=== PATIENT | male | born 1985 | race Caucasian/White ===

== ENCOUNTER → 2020-08-18 10:34 | Outpatient (CLI) | payer OTHER, SELFPAY ==
[2020-08-18 11:50] LABS: NATERA MAILED SPECIMEN
== END ==
PROVIDERS: Referring Provider Obstetrics & Gynecology; Visit Provider Obstetrics & Gynecology
DX: Z31.440 Encounter of male for testing for genetic disease carrier status for procreative management (principal)
CPT/HCPCS: 36415

== ENCOUNTER → 2025-03-25 | Outpatient (CLI) | payer OTHER, SELFPAY ==
--- OUTSIDE RECORDS SUMMARY | 2025-03-25 19:49 | XMS RPT_ITS | CCD ---
Author Organization [facility] Care Team Providers Care Machine Sizer Name Role Phone [facility] Other Unavailable [phone] [facility] Other Unavailable [phone] Self, Self Primary Care Provider Unavailabl e SELF, SELF Primary Care Unavailable SELF, AMISHA Attending Unavailable RAJAB, AMER Referring Unavailable SELF, SELF Referring Unavailable SELF, SELF Primary Care Unavailable RAJAB, AMER Attending Unavailable RAJAB, AMER Attending Unavailable RAJAB, AMER Admitting Unavailable SELF, SELF Referring Unavailable SELF, SELF Primary Care Unavailable RAJAB, AMER Attending Unavailable DARA CARRERO Admitting Unavailable PASTORADARA CHURCHILL Primary Care Unavailable DARA CARRERO Attending Unavailable PESAVENTO, KENDRICK E Admitting Unavailable PESAVENTO, KENDRICK E Primary Care Unavailable PESAVENTO, KENDRICK E Attending Unavailable ANDREA EDMONDSON MD Primary Care Unava ilable BUCKANNE, ANDREA OMER Attending Unava ilable ANDREA EDMONDSON MD Admitting Unava ilable DIDLEDY HEDRICK DO Admitting Unavailable DIDLEDY HEDRICK DO Primary Care Unavailable LEDY MUNIZ DO Attending Unavailable Care Physician, No Primary Primary Care Physicia n Unavailable Care Physician, No Primary Referring Provider Un available Ayaz Andrea Attending Physician Care Physician, No Primary Referring Unava ilable Ayaz Andrea Attending Unavailable Care Physician, No Primary Primary Care Unava ilable Chata Hammond Attending Unavailable Care Physician, No Primary Primary Care Unava ilable Care Physician, No Primary Referring Unava ilable Medications Current Medications Medication Drug Class(es) Dates Sig (Normalized) Sig (Original) acetaminophen 325 mg oral tablet (2 sources) Start: 04-01-2022 take 2 tablets by mouth every six hours as needed acetaminophen 325 MG tablet Take 2 tablets by mouth every 6 hours as needed for Mild Pain. 56 tablet 0 04/01/2022 Active Start: 04-01-2022 End: 04-01-2022 take 1 tablet by mouth every four hours as needed acetaminophen (TYLENOL) tablet 650 mg acetaminophen 325 mg / oxyCODONE hydrochloride 5 mg oral tablet (2 sources) Opioid Agonist Start: 04-01-2022 End: 04-08-2022 take 1 tablet by mouth every six hours as needed for pain oxyCODONE-acetaminophen 5-325 MG per tablet Indications: Kidney donor Take 1 tablet by mouth every 6 hours as needed for Moderate Pain (Moderate pain after CIGAR PACKER AND PICKER discontinued) for up to 7 days. 28 tablet 0 04/01/2022 04/08/2022 Active Start: 03-30-2022 End: 04-01-2022 take 1 tablet by mouth every four hours as needed oxyCODONE-acetaminophen (PERCOCET) 5-325 MG per tablet 1 tablet docusate sodium 100 mg oral capsule (2 sources) Start: 04-01-2022 End: 05-01-2022 take 2 capsules by mouth twice daily docusate 100 MG capsule Take 2 capsules by mouth 2 times daily. Hold for loose stools 120 capsule 0 04/01/2022 05/01/2022 Active Start: 03-30-2022 End: 04-01-2022 docusate (COLACE) capsule 20 0 mg ondansetron 4 mg disintegrating oral tablet (2 sources) Serotonin-3 Receptor Antagonist Start: 04-01-2022 take 1 tablet by mouth every eight hours as needed ondansetron 4 MG Tab Dispersible tablet Take 1 tablet by mouth every 8 hours as needed for Nausea / Vomiting. 90 tablet 0 04/01/2022 Active Start: 03-30-2022 End: 04-01-2022 take 4 mg intravenously every four hours as needed ondansetron 4mg/2ml (ZOFRAN) injection 4 mg polyethylene glycol [id number] [id number] mg powder for oral solution (2 sources) Osmotic Laxative Start: 03-30-2022 End: 04-01-2022 take 1 dose by mouth once daily as needed polyethylene glycol 17 g Pack packet Take 1 packet by mouth daily as needed. Hold for loose stools 14 packet 0 04/01/2022 Active sennosides, senior living 8.6 mg oral tablet (2 sources) Start: 03-30-2022 End: 05-01-2022 take 1 tablet by mouth once daily sennosides 8.6 MG tablet Take 1 tablet by mouth daily. Hold for loose stools 30 tablet 0 04/01/2022 05/01/2022 Active simethicone 80 mg chewable tablet (2 sources) Start: 03-30-2022 End: 04-01-2022 take 1 tablet by mouth every six hours as needed simethicone 80 MG Chew Tab chewable tablet Chew 1 tablet every 6 hours as needed for Gas. 120 tablet 0 04/01/2022 Active Completed/Discontinued Medications Medication Drug Class(es) Dates Sig (Normalized) Sig (Original) 1 ml heparin sodium, porcine 5000 unt/ml prefilled syringe (2 sources) Unfractionated Heparin, Anti-coagulant Start: 2 End: 2 heparin injection 5,000 Units iohexol (OMNIPAQUE) 350 MG/ML injection 1-171 mL (1 source) Start: 2 End: 2 iohexol (OMNIPAQUE) 350 MG/ML injection 1-171 mL 30 ml morphine sulfate 1 mg/ml injection (1 source) Opioid Agonist Start: 2 End: 2 morphine 30 mg/30 mL primary teaching assistant syringe naloxone (NARCAN) injection 0.1 mg (1 source) Start: 2 End: 2 naloxone (NARCAN) injection 0.1 mg prochlorperazine (COMPAZINE) injection 10 mg (1 source) Start: 2 End: 2 take 10 mg intravenously every four hours as needed prochlorperazine (COMPAZINE) injection 10 mg 1000 ml sodium chloride 9 mg/ml injection (3 sources) Start: 2 End: 2 sodium chloride 0.9% IV solution Start: 07-10-2021 End: 07-10-2021 sodium chloride (PF) 0.9 % i njection 1-100 mL Problems Active Problems Problem Classification Problem Date Documented Date Episodic/Chronic Administrative/social admission (2 sources) Administrative reason for encounter; Translations: [Encounter for other administrative examinations] 12-19-2023 Episodic Residual codes; unclassified (1 source) Hypersomnia, unspecified; Translations: [Hypersomnia, unspecified] Onset: 03-02-2025 Chronic Past or Other Problems Problem Classification Problem Date Documented Da te Episodic/Chronic Residual codes; unclassified (10 sources) Kidney donor; Translations: [Kidney donors] Onset: 03-30-2022 Episodic Results Test Name Value Interpretation Reference Range Facility Pulmonary Visit Reporton Pulmonary Visit Report [facility] Pulmonary Medicine [address] [place] [address] OFFICE VISIT Date of Service: 03/02/25 MR#: [id number] Acct: [id number] Name: LEDY DOVER Rep #: [id number] : 1985 Provider: Chata Hammond NP Age/Sex: 39/M [place] [facility] [place] Status: Signed Assessment and Plan Assessment and Plan (1) Sleep apnea: Status: Suspected Qualifiers: Sleep apnea type: obstructive Qualified Code(s): G47.33 - Obstructive sleep apnea (adult) (pediatric) Plan: The patient has had benefit from using PAP therapy in the past. Unfortunately his device is broken. It has been over 6 years since he has had his last sleep study. I have recommended repeating a study at this time and obtaining supine sleep for the study. I do believe the patient would benefit from using PAP therapy at this time. Await results of study and further recommendations will be forthcoming. The pathophysiology of sleep apnea was discussed at length with patient today. The patient is agreeable to proceed with an in-lab study. The process of completing this study, awaiting interpretation and results of the study and then set up with therapy was discussed with patient. The patient would likely be set up with an AutoPap device if his sleep study is positive. He would then follow-up in 3 months with a download from the device. (2) Daytime hypersomnia: Status: Acute Comment: STOP-BANG = 6 Plan: Despite an ESS of 0 the patient does report daytime hypersomnia. The patient reports that he does not allow himself to fall asleep. 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 He does consume 1 pot of coffee a day which does help him to stay awake. He does appear tired today. Await further testing. Orders: Orders Polysomnography Today G47.10 - Hypersomnia, unspecified Plan This note was generated with [employer] dictation software. It may contain incorrect words, spelling, and punctuation that were not noted in checking the note before signing. Plan Details Additional Comments: The patient is encouraged to utilize Zyrtec for his pruritic rash. Follow-up with PCP or urgent care if it does not improve. Follow Up: 3 Months (LMR) HPI HPI Comments Details: Patient is a 39-year-old male who presents today to establish for sleep apnea. He is ambulatory and currently on room air. [facility] He reports that his CPAP machine is broken and has not treated his sleep apnea for 2 years. He is snoring at night and feels tired throughout the day. He does not feel rested upon awakening. He awakens with a dry mouth. He denies teeth grinding. Nocturia occurs x 1-2. He had a history of positional sleep apnea. His insurance would not pay for PAP device so he used his father's machine for 5 years. He felt refreshed treating sleep disordered breathing at the time when he did have a device that was available. He did complete a PSG June 23, 2018 which showed an AHI of 3.5/h. He repeated a PSG on November 24, 2018 which showed an AHI of 3.2/h. In supine positioning his AHI was 5.5. Nonsupine positioning AHI was 0. At that time the patient had a tamika oxygen saturation of 89%. He has no history of pneumonia or bronchitis. He is a lifetime non-smoker. His father has sleep apnea. He drinks a pot of coffee a day. 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 He can't take a nap because his mind is running so fast. STOP-BANG Assessment: 1. Do you snore? [Y] 2. Are you frequently tired during the day? [Y] 3. Have you been observed gasping or choking while asleep? [Y] 4. Do you have high blood pressure? [Y] 5. BMI - greater than 35kg/m2? [N] 6. Age - over 50 years old? [N] 7. Neck Circumference - greater than 37 cm for females or 40 cm for males? [42 cm, Y] 8. Gender - male? [Y] Total STOP-BANG score = [6] which indicates [high] risk for obstructive sleep apnea (yes to 3 or more questions = high risk of sleep apnea). Intake Vital Signs 03/02/25 08:36 Height 5 ft 11 in Weight: 205 lb BMI 28.5 BP 129/85 H Blood Pressure Location Lt brachial Position Sitting Respiration 20 H Pulse 69 Pulse Source Monitor Temp 97.0 F L Temperature Source Temporal Artery Pulse Oximetry (%) 9 Oxygen Delivery Method room air Intake Visit Reasons: Sleep apnea Property Adjuster Required: No DME Vendor: n/a Accompanied by: Self Is patient in pain?: No Allergies No Known Allergies Allergy (Unverified 03/02/25 08:36) Medications ???Medication ???Instructions ???Recorded ???Confirmed ???Type valsartan 80 mg tablet 80 mg PO QDAY 03/02/25 03/02/25 Hi story [facility] Medical History (Updated 03/02/25 @ 09:16 by Chata Hammond NP-C) HTN (hypertension) Social Hi (more content not included)... Normal [facility] Office Visit Reporton 2024 Office Visit Report [facility] [address] [place] [address] OFFICE VISIT Date of Service: 01/13/25 MR#: [id number] Acct: [id number] Patient: LEDY DOVER Rep #: [id number] : 1985 Provider: JAYASHREE Roe Age/Sex: 39/M Location: [facility] Status: Signed Intake Intake Visit Reasons: DOT PHYSICAL/SELF PAY Chief Complaint: DOT physical [facility] Medical History (Updated 12/19/23 @ 06:28 by JAYASHREE Andrade) HTN (hypertension) HPI HPI Chief Complaint: DOT physical Details: LEDY DOVER, is a 39 M who presents to the office today for DOT physical Office Procedures Physical Exam Coding PE Coding DOT PE: Yes Coding Level of Care Code No Charge Diagnoses Encounter for examination required by Department of Transportation (DOT) Z02.89 Assessment and Plan Assessment and Plan (1) Encounter for examination required by Department of Transportation (DOT): Status: Acute Plan: see accompanying paperwork. 1 yr card issued. hx htn stable 01/13/25 1154 Date Ayaz Ting JAYASHREE Myrick Signature: Date (if applicable) CC: Normal [facility] ED MED ADMINISTRATION DETAIL on 09-22-2024 ED MED ADMINISTRATION DETAIL [employer] Medication Administration Record [address] [place] [address] [id number] 09/21/2024 Patient: LEDY DOVER Sex: Male : 1985 Age: 39y MEASUREMENTS: Wt: 92.1 kg, Ht/Burt: 71.0 in, BMI: 28.31 ALLERGIES: No known drug allergies Medication Ordered Medication Administration Date/Time CeFAZolin (Ancef) 20:09/21 CeFAZolin (Ancef) IVPB 1g/50ml PREMIX BAG 1 g Started IVPB 1g/50ml started at 100 mL/hr via Site# 1. Allergies verified and confirmed 5 20:11 09/21/2024 PREMIX BAG 1 g at rights. Via IV pump. IV patency established. IV site checked: no Sandra Talamantes R.N. 100 mL/hr (NOW x1) pain, redness, or swelling. IV flushed thoroughly pre-medication Stopped administration. Information reviewed with patient including reason 20:09/21/2024 for taking this medication, signs of allergic reaction and precautions. Samra Bhandari R.N. Verbalizes understanding. - 20:12 Sandra Talamantes R.N. Scanned 20:09/21 Medication Discontinued: IV completed. Total amount infused: 50 mL. IV patency established. IV site checked: no pain, redness, or swelling. IV flushed thoroughly post-medication administration. - 20:38 Samra Bhandari R.N. Acetaminophen 20:09/21 Acetaminophen (Tylenol) PO 650 mg given. Allergies Given (Tylenol) PO 650 verified and confirmed 5 rights. Information reviewed with patient 20:22 09/21/2024 mg (NOW x1) including reason for taking this medication, signs of allergic reaction Samra Bhandari R.N. and precautions. Verbalizes understanding. - 20:23 Edson Villa R.N. OxyCODONE-APAP Completed 5-325 (Percocet) PO 21:57 09/21/2024 1 tab Samra Bhandari R.N. 1 of 2 [employer] Medication Ordered Medication Administration Date/Time Order Comments: 21:53 09/21/2024 (1 tablet to go. Can take for pain when he gets home.) Ledy Muniz D.O. 21:57 09/21/2024 Order Completed. Medication sent home with patient. Samra Bhandari R.N. 2 of 2 [facility] ED NURSES CLINICAL NOTEon ED NURSES CLINICAL NOTE Nurse Narrative Nurse Clinical [address] [address] [id number] 09/21/2024 18:57:00 Patient: LEDY DOVER Sex: Male : 1985 Age: 39y Disposition: Discharge to Home Disposition Decision Time: 21:46 09/21/2024 Departure Time: 22:00 09/21/2024 TRIAGE Arrived by private vehicle. Historian: (patient). Primary physician (Lissett Yu [place]). Triage time: 19:04 09/21/2024. Chief Complaint: LEFT LOWER EXTREMITY PAIN, SWELLING and REDNESS. Location of symptoms- left great toe. Injury occurred. Onset. (Saturday night). ( Electrical conduit fell directly on pt's left toe. Now he has pain and swelling.). SEPSIS SCREEN: NEGATIVE. SIRS criteria negative. No possible sources of infection. -- 19:11 09/21/24 EDT Naila Shell R.N. Acuity: LEVEL 3. 19:07 09/21/24. -- 19:12 09/21/24 EDT Naila Shell R.N. 19:11 09/21/24. BP: 161/107 MAP: 125. HR: 80. RR: 16. O2 saturation: 99% Temperature: 97.5 F. Pain level now 710. -- 19:09/21/24 RANDEE Shell R.N. Measurements: 19:09/21/24 Wt: 92.1 kg, Ht/Burt: 71.0 in, BMI: 28.31 -- 19:09/21/24 JIMT Naila Shell R.N. Medications: 1 of 4 Nurse Narrative valsartan 80 mg tablet: 80 mg once a day . -- 19:09/21/24 JIMT Naila Shell R.N. 19:09/21/24. Preferred Pharmacy: [facility] -- 19:09/21/24 RANDEE Shell R.N. Allergies: no known drug allergies -- 19:09/21/24 JIMT Naila Shell R.N. Problems: Hypertension -- 19:09/21/24 JIMT Naila Shell R.N. Surgeries: kidney donation. left kidney -- :09/21/24 RANDEE Shell R.N. History 19:09/21/24. PAST MEDICAL HX: Immunizations not up to date. SOCIAL HX: Never smoker. No alcohol use or drug use. The patient has not traveled outside the [place] Infectious disease exposure: No infectious disease exposure. ABUSE ASSESSMENT: The patient answered yes to the question(s) Do you feel safe in your home? and no to the question(s) Are you afraid to go home?. SELF HARM ASSESSMENT: Self harm assessment was performed. The patient answered no to the question(s) Have you recently felt down, depressed, or hopeless? and Do you have thoughts of harming or killing yourself?. FALL RISK ASSESSMENT: Fall risk assessment completed. No risk factors identified. -- 19:09/21/24 RANDEE Shell R.N. Interventions 19:09/21/24. Advanced care plan discussed with patient. Patient does not have advanced directive. -- 19:09/21/24 RANDEE Shell R.N. 2 of 4 Nurse Narrative PHYSICAL ASSESSMENT 20:09/21/24. GENERAL / NEURO / PSYCH: Oriented X 4. Alert. Appears in no acute distress. EXTREMITIES: Extremity pulses are within normal limits. Neuro-vascular status intact to the extremity. Left foot: tenderness, swelling, erythema and ecchymosis of the first toe. SKIN: Skin intact. Skin is warm and dry. -- 20:16 09/21/24 EDT Samra Bhandari R.N. NURSING PROGRESS NOTES 19:58 09/21/24. Site #1 started via IV in the left antecubital space with a 20g angiocath with aseptic technique and good blood return; 1 attempt. Blood drawn: rainbow set tube(s). Saline lock flushed with 5 mL saline. -- 20:06 09/21/24 EDT Sandra Talamantes R.N. 20:11 09/21/24. CeFAZolin (Ancef) IVPB 1g/50ml PREMIX BAG 1 g started at 100 mL/hr via Site# 1. Allergies verified and confirmed 5 rights. Via IV pump. IV patency established. IV site checked: no pain, redness, or swelling. IV flushed thoroughly pre-medication administration. Information reviewed with patient including reason for taking this medication, signs of allergic reaction and precautions. Verbalizes understanding. -- 20:12 09/21/24 EDT Sandra Talamantes R.N. 20:22 09/21/24. Acetaminophen (Tylenol) PO 650 mg given. Allergies verified and confirmed 5 rights. Information reviewed with patient including reason for taking this medication, signs of allergic reaction and precautions. Verbalizes understanding. -- 20:23 09/21/24 EDT Samra Bhandari R.N. 20:30 09/21/24. 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 -- 20:55 09/21/24 EDT Samra Bhandari R.N. 20:38 09/21/24. CeFAZolin (Ancef) IVPB 1g/50ml PREMIX BAG: Medication Discontinued. IV completed. Total amount infused: 50 mL. IV patency established. IV site checked: no pain, redness, or swelling. IV flushed thoroughly post-medication administration. -- 20:38 09/21/24 EDT Samra Bhandari R.N. 21:03 09/21/24. ED physician at the patient's bedside. -- 21:04 09/21/24 EDT Samra Bhandari R.N. DISPOSITION / DISCHARGE 21:50 09/21/24. BP: 152/89 MAP: 110. HR: 76. RR: 16. O2 saturation: 100% on room air. Temperature: Deferred . Pain level now 6/10. Describes the pain as throbbing. (Left great toe). -- 22:07 09/21/24 EDT Samra Bhandari R.N. 21:55 09/21/24. Site #1 removed upon discharge. Cathet (more content not included)... Normal [facility] ED ORDER SHEET (CPOE ONLY)on 09-22-2024 ED ORDER SHEET (CPOE ONLY) Order Sheet Order Sheet [address] [place] [address] [id number] 09/21/2024 Patient: LEDY DOVER Sex: Male : 1985 Age: 39y MEASUREMENTS: Wt: 92.1 kg, Ht/Burt: 71.0 in, BMI: 28.31 ALLERGIES: No known drug allergies MEDICATION/IV/DRIP/F LUID ORDERS Order Description Priority Entered Acknowledged Completed CeFAZolin (Ancef) IVPB 19:49 09/21/2024 20:12 1g/50ml PREMIX BAG1 g at 100 Ledy Muniz D.O. 09/21/2024 mL/hr (NOW x1) Sandra Talamantes R.N. Acetaminophen (Tylenol) 20:19 09/21/2024 20:20 20:23 PO650 mg (NOW x1) Cheikh LamOKendrick 09/21/2024 09/21/2024 Samra Bhandari, Samra Bhandari R.N. RRadha OxyCODONE-APAP 5-325 21:53 09/21/2024 21:55 21:57 (Percocet) PO1 tab (NOW x1, Cheikh LamOKendrick 09/21/2024 09/21/2024 HIGH ALERT MEDICATION) Samra Villa R.N. Peng Order Comments: 21:53 09/21/2024: (1 tablet to go. Can take for pain when he gets home.) Ledy Muniz D.O. 21:57 09/21/2024: Order Completed. Medication sent home with patient. Samra Bhandari R.N. Reason for ordering with alerts: Clinical consideration given --21:53 09/21/2024 Ledy Muniz, 1 of 2 Order Sheet [place] LAB ORDERS Order Description Priority Entered Acknowledged Collected Completed CBC w Diff Stat Stat 19:49 09/21/2024 20:06 09/21/2024 20:12 09/21/2024 Albaro Lam Crystal Brenner, R.N. R.N. CMP Stat Stat 19:49 09/21/2024 20:06 09/21/2024 20:12 09/21/2024 Albaro Lam Crystal Brenner, R.N. R.N. DIAGNOSTIC STUDY ORDERS Order Description Priority Entered Acknowledged Completed Toe(s) Lt Stat Stat 19:30 09/21/2024 20:06 20:23 Ledy Muniz D.O. 09/21/2024 09/21/2024 Samra Morales, Peng R.NKendrick Reason for Study: Toes Injury STAFF ORDERS Order Description Priority Entered Acknowledged Collected Completed [Electronically signed by Ledy Muniz D.O. (09/22/2024 00:12 EDT)] 2 of 2 Normal [facility] ED PHYSICIAN CLINICAL REPORT on 09-22-2024 ED PHYSICIAN CLINICAL REPORT Narrative Physician Clinical Narrative [address] [address] [id number] 09/21/2024 18:57:00 Patient: LEDY DOVER Sex: Male : 1985 Age: 39y Disposition: Discharge to Home Disposition Decision Time: 21:46 09/21/2024 Departure Time: 22:00 09/21/2024 Measurements Wt: 92.1 kg, Ht/Burt: 71.0 in, BMI: 28.31 Initial Vital Sign Measured Time BP MAP HR RR O2Sat ETCO2 Temp Pain GCS RTS 19:11 09/21/2024 161/107 125 80 16 99% 97.5 F 7 Time Seen: 19:03 09/21/2024. Arrived- By private vehicle. Historian- patient. Independent historian- family. HISTORY OF PRESENT ILLNESS Chief Complaint: Injury to the left foot and great toe. The injury happened 6 days ago. (Dropped a conduit box on his left great toe last Magaly. He did poke a hole in the nail bed to help it drain blood but now the toe is red swollen and very painful.). REVIEW OF SYSTEMS MUSCULOSKELETAL: The patient complains of pain on weight bearing. The patient has had swelling. PAST HISTORY See nurses notes. 1 of 9 Narrative Hypertension Surgeries: kidney donation: Body Site left kidney Medications: valsartan 80 mg tablet: 80 mg once a day . Allergies: no known drug allergies SOCIAL HISTORY Never smoker. No alcohol use or drug use. ADDITIONAL NOTES The nursing notes have been reviewed. PHYSICAL EXAM Appearance: Alert. Oriented X3. Patient in mild distress. Head: Head atraumatic. Eyes: Pupils equal, round and reactive to light. ENT: Nose normal. (teeth intact). Neck: Normal inspection. Neck supple. C-spine non-tender. CVS: Normal heart rate and rhythm. Heart sounds normal. Pulses normal. Respiratory: No respiratory distress. Breath sounds normal. Chest nontender. Abdomen: No visible injury. Soft and nontender. Bowel sounds normal. Skin: Skin intact. Skin warm and dry. Extremities: Left great toe: moderate erythema, tenderness and swelling, small ecchymosis and multiple puncture wounds with controlled bleeding of the nail bed and tip of the toe; limited movement (diminished flexion); small subungual hematoma present. Neurovascular intact distally. No laceration, abrasion, foreign body or deformity. No avulsion. No amputation. No ankle injury. Extremities otherwise negative. Neuro, Vascular and Tendons: Vascular status intact. Sensation intact. Motor intact. Tendon function intact. Gait: Limping gait. Neuro: Oriented X 3. No motor deficit. No sensory deficit. 2 of 9 Narrative LABS, X-RAYS, AND EKG Laboratory Tests: CBC + DIFF Final JORGE: 09/21/2024 19:58:00 EDT MsgRcvd: 09/21/2024 20:22 EDT Lab Test Result Reference Status Received Comments 09/21/2024 20:22 CBC-COMPLETE CBC + DIFF Final EDT BLOOD COUNT 09/21/2024 20:22 WBC 10.1 x 10/UL 4.5 - 10.8 Final EDT 09/21/2024 20:22 RBC 4.82 x 10/UL 4.50 - 6.00 Final EDT 09/21/2024 20:22 HEMOGLOBIN 15.0 g/dl 13.0 - 17.5 Final EDT 09/21/2024 20:22 HEMATOCRIT 42.5 % 40.0 - 52.0 Final EDT 09/21/2024 20:22 MCV 88 fl 81 - 98 Final EDT 09/21/2024 20:22 MCH 31 pg 27 - 33 Final EDT 09/21/2024 20:22 MCHC 35 X10 3 32 - 36 Final EDT 09/21/2024 20:22 RDW/CV 13.2 % 12.0 - 15.6 Final EDT 09/21/2024 20:22 PLATELET 297 x10/UL 150 - 450 Final EDT 3 of 9 Narrative Lab Test Result Reference Status Received Comments 09/21/2024 20:22 AUTOMATED MPV 6.9 fl 6.4 - 10.5 Final EDT DIFFERENTIAL 09/21/2024 20:22 NEUT % 64.1 % 46.0 - 76.0 Final EDT 09/21/2024 20:22 LYMPH % 25.9 % 20.0 - 45.0 Final EDT 09/21/2024 20:22 MONOS % 7.7 % 0.0 - 10.0 Final EDT 09/21/2024 20:22 EO % 2.1 % 0.0 - 7.0 Final EDT 09/21/2024 20:22 BASO % 0.2 % 0.0 - 2.0 Final EDT 09/21/2024 20:22 Lymph # 2.62 x10/UL 0.80 - 2.80 Final EDT 09/21/2024 20:22 Neut # 6.48 x10/UL 1.50 - 7.10 Final EDT 09/21/2024 20:22 [place] # 0.78 x10/UL 0.20 - 1.00 Final EDT 09/21/2024 20:22 EO # 0.21 x10/UL 0.00 - 0.50 Final EDT 09/21/2024 20:22 Baso # 0.02 x10/UL 0.00 - 0.10 Final EDT 09/21/2024 20:22 MANUAL DIFF N/A New Order EDT 09/21/2024 20:22 MORPHOLOGY N/A New Order EDT 4 of 9 Narrative CMP with eGFR Final JORGE: 09/21/2024 19:58:00 EDT MsgRcvd: 09/21/2024 20:41 EDT Lab Test Result Reference Status Received Comments COMPREHENSIVE 09/21/2024 CMP with eGFR Final METABOLIC 20:41 EDT PANEL 09/21/2024 SODIUM 141 mmol/l 136 - 145 Final 20:41 EDT 09/21/2024 POTASSIUM 3.8 mmol/L 3.5 - 5.1 Final 20:41 EDT 09/21/2024 CHLORIDE 104 mmol/L 98 - 107 Final 20:41 EDT 09/21/2024 CO2 29.0 mmol/L 21.0 - 32.0 Final 20:41 EDT 09/21/2024 GLUCOSE 90 mg/dl 74 - 106 Final 20:41 EDT 21 mg/dl 09/21/2024 BUN Above high 7 - 18 Final 20:41 EDT normal 1.52 mg/ (more content not included)... Normal [facility] ED [facility] 09-22-[address] [place] [address] [id number] 09/21/2024 Patient: LEDY DOVER Sex: Male : 1985 Age: 39y Item Facility Professional Category Description Code Code Quantity Fee Total Nurse/E/M EMERGENCY 731863 1 $0.00 $0.00 DEPARTMENT VISIT HIGH/URGENT SEVERITY (30323-19) Nurse/IV/IM/Infusion s Drip/IVPB initial 370365 1 $0.00 $0.00 (10638) Grand Total $0.00 Providers Ledy Muniz D.O. Chief Complaint Injury to the left foot and great toe. Principal Diagnosis Cellulitis of the left great toe. 1 of 2 [facility] ICD-10 Codes L03.032: Cellulitis of left toe 2 of 2 Normal [facility] ED VISIT SUMMARYon ED VISIT SUMMARY Visit Overview Visit Overview [place] [address] [place] [address] [phone] 09/21/2024 Patient: LEDY DOVER Sex: Male : 1985 Age: 39y 09/22/2024 12:12 AM EDT ED Arrival:18:57 09/21/2024 EDT Status: Recent Travel:no Language:eng Adv Directive:No Isolation Status: Ethnicity:N Fall Risk:no risk Infectious Disease Exposure:no Measurements:5'11 / 180.3 Self-Harm Status:risk Sepsis Screen:negative cm 203.0 lb / 92.1 kg Chief Complaint:left great toe, LEFT LOWER EXTREMITY PAIN, LEFT LOWER EXTREMITY REDNESS, LEFT LOWER EXTREMITY SWELLING, (Electrical conduit fell directly on pt's left toe. Now he has pain and swelling. ), ([place] ), and (Saturday ) ALLERGIES No Known Drug Allergies 1 of 3 Visit Overview HOME MEDICATIONS valsartan 80 mg tablet: 80 mg once a day . PAST MEDICAL HISTORY / PROBLEMS Hypertension See nurses notes PAST SURGICAL HISTORY kidney donation. left kidney SOCIAL HISTORY Smoking status: No Alcohol use: No Drug use: No ED COURSE MEDICATIONS GIVEN IN EMERGENCY DEPARTMENT 20:11 09/21/24 CeFAZolin (Ancef) IVPB 1g/50ml PREMIX BAG 1 g 100 mL/hr 20:22 09/21/24 Acetaminophen (Tylenol) PO 650 mg IV SITE INFORMATION INTAKE OUTPUT REASSESMENT (most recent) 20:30 09/21/24. 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 VITAL SIGNS First Vitals Last Vitals Temp 19:09/21/24 97.5 F Temp 21:50 09/21/24 BP 19:09/21/24 161/107 BP 21:50 09/21/24 152/89 HR 19:09/21/24 80 HR 21:50 09/21/24 76 2 of 3 Visit Overview First Vitals Last Vitals RR 19:09/21/24 16 RR 21:50 09/21/24 16 O2 Sat 19:09/21/24 99% O2 Sat 21:50 09/21/24 100% RA Pain 19:11 09/21/24 7 Pain 21:50 09/21/24 6 ETCO2 19:11 09/21/24 ETCO2 21:50 09/21/24 GCS 19:11 09/21/24 GCS 21:50 09/21/24 RTS 19:11 09/21/24 RTS 21:50 09/21/24 PROCEDURES NURSING INTERVENTIONS LABS / STUDIES LABS / STUDIES ORDERED CBC w Diff CMP Toe(s) Lt CLINICAL IMPRESSION CELLULITIS OF THE LEFT GREAT TOE 3 of 3 Normal [facility] ED VITALS FLOW SHEETon 09-22 ED VITALS FLOW SHEET Vitals Vital Sign Flow Sheet [address] [address] [id number] 09/21/2024 Patient: LEDY DOVER Sex: Male : 1985 Age: 39y Measurements Wt: 92.1 kg, Ht/Burt: 71.0 in, BMI: 28.31 Measured Time BP MAP HR RR O2Sat ETCO2 Temp Pain GCS RTS 21:50 09/21/2024 152/89 110 76 16 100% RA 6 19:11 09/21/2024 161/107 125 80 16 99% 97.5 F 7 1 of 1 Normal [facility] CBC + DIFFon 09-21-2024 Baso # 0.02 x10EE3/UL Normal 0.00 - 0.10 [facility] Comment on above: Performed By: #### 2 02276 #### [facility],[address] [place] [address] 20031 Basophils/100 WBC (Bld) 0.2 % Normal 0.0 - 2.0 [facility] Comment on above: Performed By: #### 2 46126 #### [facility],[address] [place] [address] 42742 CBC + DIFF Normal [facility] Comment on above: Result Comment: CBC- COMPLETE BLOOD COUNT Performed By: #### 2 93040 #### [facility],[address] [place] [address] 39458 EO # 0.21 x10EE3/UL Normal 0.00 - 0.50 [facility] Comment on above: Performed By: #### 2 24357 #### [facility],[address] [place] [address] 66707 Eosinophils/100 WBC (Bld) 2.1 % Normal 0.0 - 7.0 [facility] Comment on above: Performed By: #### 2 10759 #### [facility],[address] [place], [place] [id number] Erythrocyte distribution width (RBC) [Ratio] 13.2 % Normal 12.0 - 15.6 [facility] Comment on above: Performed By: #### 2 76563 #### [facility],[address] [place] [address] Hematocrit (Bld) [Volume fraction] 42.5 % Normal 40.0 - 52.0 [facility] Comment on above: Performed By: #### 2 16778 #### [facility],[address] [place], [place] [id number] Hemoglobin (Bld) [Mass/Vol] 15.0 g/dL Normal 13.0 - 17.5 [facility] Comment on above: Performed By: #### 2 21415 #### [facility],[address] [place] [address] 96389 Lymph # 2.62 x10EE3/UL Normal 0.80 - 2.80 [facility] Comment on above: Performed By: #### 2 19953 #### [facility],[address] [place] [address] 73197 Lymphocytes/100 WBC (Bld) 25.9 % Normal 20.0 - 45.0 [facility] Comment on above: Performed By: #### 2 63721 #### [facility],[address] [place] [address] 03129 MANUAL DIFF N/A Normal [facility] Comment on above: Performed By: #### 2 93268 #### [facility],[address] [place] [address] MCH (RBC) [Entitic mass] 31 pg Normal 27 - 33 [facility] Comment on above: Performed By: #### 2 50832 #### [facility],[address] [place] [address] MCHC 35 X10 3 Normal 32 - 36 [facility] Comment on above: Performed By: #### 2 67738 #### [facility],[address] [place] [address] MCV (RBC) [Entitic vol] 88 fL Normal 81 - 98 [facility] Comment on above: Performed By: #### 2 12194 #### [facility],[address] [place] [address] [place] # 0.78 x10EE3/UL Normal 0.20 - 1.00 [facility] Comment on above: Performed By: #### 2 08203 #### [facility],[address] [place] [address] MONOS % 7.7 % Normal 0.0 - 10.0 [facility] Comment on above: Performed By: #### 2 13764 #### [facility],[address] [place] [address] Morphology Alexis (Bld) [Interp] N/A Normal [facility] Comment on above: Performed By: #### 2 40642 #### [facility],[address] [place] [address] Neut # 6.48 x10EE3/UL Normal 1.50 - 7.10 [facility] Comment on above: Performed By: #### 2 64484 #### [facility],[address] [place] [address] Neutrophils/100 WBC (Bld) 64.1 % Normal 46.0 - 76.0 [facility] Comment on above: Performed By: #### 2 70739 #### [facility],[address] [place] [address] 63260 PLATELET 297 x10EE3/UL Normal 150 - 450 [facility] Comment on above: Performed By: #### 2 65744 #### [facility],[address] [place] [address] 06052 Platelet mean volume (Bld) [Entitic vol] 6.9 fL Normal 6.4 - 10.5 [facility] Comment on above: Result Comment: AUTO MATED DIFFERENTIAL Performed By: #### 2 26749 #### [facility],[address] [place] [address] 00977 RBC 4.82 x 10EE6/UL Normal 4.50 - 6.00 [facility] Comment on above: Performed By: #### 2 30894 #### [facility],[address] [place] [address] 50179 WBC 10.1 x 10EE3/UL Normal 4.5 - 10.8 [facility] Comment on above: Performed By: #### 2 92563 #### [facility],[address] [place] [address] 70588 CMP with eGFRon 09-21-2024 AGE 39 years Normal [facility] Comment on above: Performed By: #### 2 28568 #### [facility],[address] [place] [address] 57144 Albumin [Mass/Vol] 4.0 g/dL Normal 3.4 - 5.0 [facility] Comment on above: Performed By: #### 2 49622 #### [facility],[address] [place] [address] 76783 Albumin/Globulin [Mass ratio] 1.3 {ratio} Normal 0.9 - 1.6 [facility] Comment on above: Performed By: #### 2 40016 #### [facility],[address] [place] [address] 40580 ALK PHOS 92 U/L Normal 46 - 116 [facility] Comment on above: Performed By: #### 2 84833 #### [facility],[address] [place] [address] 19793 ALT [Catalytic activity/Vol] 62 U/L Normal 16 - 63 [facility] Comment on above: Performed By: #### 2 45428 #### [facility],[address] [place] [address] 57208 Anion gap [Moles/Vol] 12 mmol/L Normal 10 - 20 [facility] Comment on above: Performed By: #### 2 22338 #### [facility],[address] [place] [address] 34471 AST [Catalytic activity/Vol] 29 U/L Normal 15 - 37 [facility] Comment on above: Performed By: #### 2 17799 #### [facility],[address] [place] [address] 08416 B/C RATIO 14 ratio Normal 0 - 30 [facility] Comment on above: Performed By: #### 2 33564 #### [facility],[address] [place] [address] 52255 Bilirubin [Mass/Vol] 0.4 mg/dL Normal 0.2 - 1.0 [facility] Comment on above: Performed By: #### 2 77108 #### [facility],[address] [place] [address] 56162 Calcium [Mass/Vol] 8.7 mg/dL Normal 8.5 - 10.1 [facility] Comment on above: Performed By: #### 2 87335 #### [facility],[address] [place] [address] 57564 Chloride [Moles/Vol] 104 mmol/L Normal 98 - 107 [facility] Comment on above: Performed By: #### 2 37849 #### [facility],[address] [place] [address] 57209 CMP with eGFR Normal [facility] Comment on above: Result Comment: COMP REHENSIVE METABOLIC PANEL Performed By: #### 2 59987 #### [facility],[address] [place] [address] 20715 CO2 [Moles/Vol] 29.0 mmol/L Normal 21.0 - 32.0 [facility] Comment on above: Performed By: #### 2 92949 #### [facility],[address] [place] [address] 17782 Creatinine [Mass/Vol] 1.52 mg/dL High 0.70 - 1.30 [facility] Comment on above: Performed By: #### 2 16171 #### [facility],[address] [place] [address] 41410 eGFR 52 ML/MINUTE Low 60 - 999 [facility] Comment on above: Performed By: #### 2 13217 #### [facility],[address] [place] [address] 88428 GFR/1.73 sq M.predicted among non-blacks MDRD (S/P/Bld) [Vol rate/Area] mL/min/{1.73_m2} Normal 60 - 999 [facility] Comment on above: Result Comment: ACCO RDING TO THE NATIONAL KIDNEY DISEASE EDUCATION PROGRAM(NKDE), A NORMAL eGFR IS A VALUE GREATER THAN OR EQUAL TO 60 ML/MIN/1.73 SQ METERS. CHRONIC KIDNEY DISEASE: <60mL/MIN/1.73 SQ METERS KIDNEY FAILURE: <15mL/MIN/1.73 SQ METERS THIS TEST SHOULD ONLY BE USED FOR PATIENTS 18 YEARS OF AGE AND OLDER. Performed By: #### 2 85667 #### [facility],[address] [place] [address] 33517 Globulin (S) [Mass/Vol] 3.2 g/dL Normal 1.5 - 3.8 [facility] Comment on above: Performed By: #### 2 90160 #### [facility],[address] [place] [address] 93077 Glucose [Mass/Vol] 90 mg/dL Normal 74 - 106 [facility] Comment on above: Performed By: #### 2 06202 #### [facility],[address] [place] [address] 19705 Potassium [Moles/Vol] 3.8 mmol/L Normal 3.5 - 5.1 [facility] Comment on above: Performed By: #### 2 50415 #### [facility],[address] [place] [address] 36710 Protein [Mass/Vol] 7.2 g/dL Normal 6.4 - 8.2 [facility] Comment on above: Performed By: #### 2 17731 #### [facility],[address] [place] [address] 94651 Sodium [Moles/Vol] 141 mmol/L Normal 136 - 145 [facility] Comment on above: Performed By: #### 2 36655 #### [facility],[address] [place] [address] 92834 Urea nitrogen [Mass/Vol] 21 mg/dL High 7 - 18 [facility] Comment on above: Performed By: #### 2 34550 #### [facility],[address] [place] [address] 76782 TOES LTon 09-21-[address] [address] Patient: LEDY DOVER Phone#: : 1985 Age: 39 Gender: M Pt. Type: ER Account: [id number] Location: 05 Ordering: LEDY MUNIZ Exam Date: 09/21/2024/19:38 Family Phys: Charge Code: [id number] Physician: Levy Order #: [id number] Dose#: PROCEDURE: X-RAY TOES LT MIN 2 VIEWS COMPARISON: None. INDICATIONS: Toe injury. FINDINGS: BONES: Normal. No significant arthropathy or acute abnormality. SOFT TISSUES: Negative. No visible soft tissue swelling. EFFUSION: None visible. OTHER: Negative. CONCLUSION: 1. No acute osseous abnormality. Dictated by: Mali Stack MD on 09/22/2024 at 9:20 Approved by: Mali Stack MD on 09/22/2024 at 9:23 Normal [facility] BMP with eGFRon 06-12-2024 AGE 39 years Normal [facility] Comment on above: Performed By: #### 2 46489 ####[facility],[address] [place], [place] [address] Anion gap [Moles/Vol] 10 mmol/L Normal 10 - 20 [facility] Comment on above: Performed By: #### 2 93327 ####[facility],[address] [place] [address] 24194 BMP with eGFR Normal [facility] Comment on above: Result Comment: BASI C METABOLIC PANEL Performed By: #### 2 10715 ####[facility],[address] [place], [place] [address] Calcium [Mass/Vol] 9.3 mg/dL Normal 8.5 - 10.1 [facility] Comment on above: Performed By: #### 2 15637 ####[facility],[address] [place], [place] [address] Chloride [Moles/Vol] 106 mmol/L Normal 98 - 107 [facility] Comment on above: Performed By: #### 2 91088 ####[facility],[address] [place] [address] 41931 CO2 [Moles/Vol] 29.9 mmol/L Normal 21.0 - 32.0 [facility] Comment on above: Performed By: #### 2 47741 ####[facility],[address] [place] [address] 98288 Creatinine [Mass/Vol] 1.28 mg/dL Normal 0.70 - 1.30 [facility] Comment on above: Performed By: #### 2 60125 ####[facility],[address] [place] [address] GFR/1.73 sq M.predicted among non-blacks MDRD (S/P/Bld) [Vol rate/Area] mL/min/{1.73_m2} Normal 60 - 999 [facility] Comment on above: Performed By: #### 2 73146 ####[facility],[address] [place] [address] Result Comment: ACCO RDING TO THE NATIONAL KIDNEY DISEASE EDUCATION PROGRAM(NKDE), A NORMAL eGFR IS A VALUE GREATER THAN OR EQUAL TO 60 ML/MIN/1.73 SQ METERS. CHRONIC KIDNEY DISEASE: <60mL/MIN/1.73 SQ METERS KIDNEY FAILURE: <15mL/MIN/1.73 SQ METERS THIS TEST SHOULD ONLY BE USED FOR PATIENTS 18 YEARS OF AGE AND OLDER. Glucose [Mass/Vol] 89 mg/dL Normal 74 - 106 [facility] Comment on above: Performed By: #### 2 61716 ####[place] [address] Potassium [Moles/Vol] 4.2 mmol/L Normal 3.5 - 5.1 [facility] Comment on above: Performed By: #### 2 55999 ####[place] [address] Sodium [Moles/Vol] 142 mmol/L Normal 136 - 145 [facility] Comment on above: Performed By: #### 2 62705 ####[place] [id number] Urea nitrogen [Mass/Vol] 19 mg/dL High 7 - 18 [facility] Comment on above: Performed By: #### 2 40052 ####[address] [address] URINE CREATININE AND PROTEIN RATIOon 06-12-2024 CREATININE UR 22.63 mg/dl Normal [facility] Comment on above: Performed By: #### 2 70084 #### [place] [id number] PC RATIO 0.12 mg/dL Normal 0.00 - 10.00 [facility] Comment on above: Performed By: #### 2 13035 #### [facility],[address] [place] [address] 11548 URINE TOTAL PROTEIN <6.00 Normal 0.00 - 10.00 [facility] Comment on above: Performed By: #### 2 55115 #### [facility],[address] [place] [address] 13820 CHEM 7 (LYTES,BUN,CREA,GLUC) on 04-30-2022 Anion gap [Moles/Vol] 12 mmol/L Normal 7-17 [facility] Comment on above: Performed By: #### L [id number] #### [facility] (DEFAULT) [address] [address] Chloride [Moles/Vol] 100 mmol/L Normal 98-108 [facility] Comment on above: Performed By: #### L [id number] #### [facility] (DEFAULT) [address] [place] [address] 83282 CO2 [Moles/Vol] 30 mmol/L Normal 21-31 [facility] Comment on above: Performed By: #### L [id number] #### [facility] (DEFAULT) [address] [place] [address] 10799 Creatinine [Mass/Vol] 1.47 mg/dL High 0.70-1.30 [facility] Comment on above: Performed By: #### L [id number] #### [facility] (DEFAULT) [address] [place] [address] 44852 GFR/1.73 sq M.predicted among non-blacks MDRD (S/P/Bld) [Vol rate/Area] 63 mL/min/{1.73_m2} Normal >=60 [facility] Comment on above: Result Comment: Repo rted eGFR is based on the CKD-EPI 2020 equation using creatinine, age, and sex. Performed By: #### L [id number] #### [facility] (DEFAULT) [address] [place] [address] 64692 Glucose [Mass/Vol] 78 mg/dL Normal 70-99 [facility] Comment on above: Performed By: #### L [id number] #### [facility] (DEFAULT) [address] [place] [address] 63408 Osmolality [Osmolality] 289 mosm/kg Normal 278-305 [facility] Comment on above: Performed By: #### L [id number] #### [facility] (DEFAULT) [address] [place] [address] 12949 Potassium [Moles/Vol] 3.9 mmol/L Normal 3.5-5.0 [facility] Comment on above: Performed By: #### L [id number] #### [facility] (DEFAULT) [address] [place] [address] 65671 Sodium [Moles/Vol] 138 mmol/L Normal 135-145 [facility] Comment on above: Performed By: #### L [id number] #### [facility] (DEFAULT) [address] [place] [address] 67784 Urea nitrogen [Mass/Vol] 16 mg/dL Normal 7-25 [facility] Comment on above: Performed By: #### L [id number] #### [facility] (DEFAULT) [address] [place] [address] 69621 Urea nitrogen/Creatinine [Mass ratio] 11 mg/mg Normal [facility] Comment on above: Performed By: #### L [id number] #### [facility] (DEFAULT) [address] [place] [address] 35943 BUN CREAon 2022 Creatinine [Mass/Vol] 1.42 mg/dL High 0.70-1.30 [facility] Comment on above: Performed By: #### L [id number] #### [facility] (DEFAULT) [address] [place] [address] 33834 GFR/1.73 sq M.predicted among non-blacks MDRD (S/P/Bld) [Vol rate/Area] 66 mL/min/{1.73_m2} Normal >=60 [facility] Comment on above: Result Comment: Repo rted eGFR is based on the CKD-EPI 2021 equation using creatinine, age, and sex. Performed By: #### L [id number] #### [facility] (DEFAULT) [address] [address] Urea nitrogen [Mass/Vol] 19 mg/dL Normal 7-25 [facility] Comment on above: Performed By: #### L [id number] #### [facility] (DEFAULT) [address] [address] Urea nitrogen/Creatinine [Mass ratio] 13 mg/mg Normal [facility] Comment on above: Performed By: #### L [id number] #### [facility] (DEFAULT) [address] [address] Creatinine [Mass/Vol] 1.42 mg/dL High 0.70 - 1.30 mg/dL [facility] GFR/1.73 sq M.predicted CKD-EPI (S/P/Bld) [Vol rate/Area] 66 - PINF [facility] Comment on above: Reported eGFR is bas ed on the CKD-EPI 2021 equation using creatinine, age, and sex. Interpretation and review of laboratory results Abnormal [facility] Urea nitrogen [Mass/Vol] 19 mg/dL 7 - 25 mg/dL [facility] Urea nitrogen/Creatinine [Mass ratio] 13 mg/mg [facility] HEMOGLOBIN & HEMATOCRITon Hematocrit (Bld) [Volume fraction] 38.0 % Low 39.6-48.8 [facility] Comment on above: Performed By: #### H H #### [facility] (DEFAULT) [address] [address] Hemoglobin (Bld) [Mass/Vol] 12.9 g/dL Low 13.4-16.8 [facility] Comment on above: Performed By: #### H H #### [facility] (DEFAULT) [address] [address] Hematocrit (Bld) [Volume fraction] 38.0 % Low 39.6 - 48.8 % [facility] Hemoglobin (Bld) [Mass/Vol] 12.9 g/dL Low 13.4 - 16.8 g/dL [facility] Interpretation and review of laboratory results Abnormal [facility] HILDA AURIS SCREEN BY PCRo n 03-30-2022 Hilda auris Screen by PCR Not detected Normal Not Detected [facility] Comment on above: Order Comment: This test was performed using a real-time PCR assay. This test was developed, and its performance characteristics determined by [facility]. It has not been cleared or approved by the FDA. The laboratory is regulated under CLIA as qualified to perform high-complexity testing. This test is used for clinical purposes. It should not be regarded as investigational or for research. Performed By: #### L [id number] #### [facility] (DEFAULT) [address] [address] CARDIAC RHYTHM (SCANNED)on 1 05-31-2021 [facility] No Panel Informationon 03-30 Sample Received Yes [facility] PRE-TX LIVING DONOR SERUM SA MPLEon 03-30-2022 Sample Received Yes Normal [facility] Comment on above: Performed By: #### P TXSER #### [facility] (DEFAULT) [address] [address] Order Comment: Ok to use EDTA tube. Performed By: #### L [id number] #### [facility] (DEFAULT) [address] [address] CBC,PLATELETSon 03-26-2022 Hematocrit (Bld) [Volume fraction] 43.9 % Normal 39.6-48.8 [facility] Comment on above: Performed By: #### L [id number] #### U [facility] (DEFAULT) [address] [address] Hemoglobin (Bld) [Mass/Vol] 15.1 g/dL Normal 13.4-16.8 [facility] Comment on above: Performed By: #### L [id number] #### [facility] (DEFAULT) [address] [address] MCV (RBC) [Entitic vol] 90.3 fL Normal 79.0-94.5 [facility] Comment on above: Performed By: #### L [id number] #### [facility] (DEFAULT) [address] [address] Mean Cell Hgb 31.1 pg Normal 26.1-33.3 [facility] Comment on above: Performed By: #### L [id number] #### [facility] (DEFAULT) [address] [address] Mean Cell Hgb Conc 34.4 g/dL Normal 31.9-36.5 [facility] Comment on above: Performed By: #### L [id number] #### [facility] (DEFAULT) [address] [address] Platelet mean volume (Bld) [Entitic vol] 10.0 fL Normal 8.7-12.3 [facility] Comment on above: Performed By: #### L [id number] #### [facility] (DEFAULT) [address] [address] Platelets (Bld) [#/Vol] 298 10*3/uL Normal 146-337 [facility] Comment on above: Performed By: #### L [id number] #### [facility] (DEFAULT) [address] [address] RBC (Bld) [#/Vol] 4.86 10*6/uL Normal 4.38-5.83 [facility] Comment on above: Performed By: #### L [id number] #### [facility] (DEFAULT) [address] [place] [address] RBC Distribution 12.2 % Normal 10.9-14.3 [facility] Comment on above: Performed By: #### L [id number] #### [facility] (DEFAULT) [address] [place] [address] WBC (Bld) [#/Vol] 5.79 10*3/uL Normal 3.73-10.10 [facility] Comment on above: Performed By: #### L [id number] #### [facility] (DEFAULT) [address] [place] [address] Erythrocyte distribution width (RBC) [Ratio] 12.2 % 10.9 - 14.3 % [facility] Hematocrit (Bld) [Volume fraction] 43.9 % 39.6 - 48.8 % [facility] Hemoglobin (Bld) [Mass/Vol] 15.1 g/dL 13.4 - 16.8 g/dL [facility] Interpretation and review of laboratory results Normal [facility] MCH (RBC) [Entitic mass] 31.1 pg 26.1 - 33.3 pg [facility] MCHC (RBC) [Mass/Vol] 34.4 g/dL 31.9 - 36.5 g/dL [facility] MCV (RBC) [Entitic vol] 90.3 fL 79.0 - 94.5 fL [facility] Platelet mean volume (Bld) [Entitic vol] 10.0 fL 8.7 - 12.3 fL [facility] Platelets (Bld) [#/Vol] 298 10*3/uL 146 - 337 K/uL [facility] RBC (Bld) [#/Vol] 4.86 10*6/uL [facility] WBC (Bld) [#/Vol] 5.79 10*3/uL 3.73 - 10. 10 K/uL [facility] CHEM 7 (LYTES,BUN,CREA,GLUC) on 03-26-2022 Anion gap [Moles/Vol] 12 mmol/L Normal 7-17 [facility] Comment on above: Performed By: #### L [id number] #### [facility] (DEFAULT) [address] [place] [address] Chloride [Moles/Vol] 104 mmol/L Normal 98-108 [facility] Comment on above: Performed By: #### L [id number] #### [facility] (DEFAULT) [address] [place] [address] CO2 [Moles/Vol] 27 mmol/L Normal 21-31 [facility] Comment on above: Performed By: #### L [id number] #### [facility] (DEFAULT) [address] [place] [address] Creatinine [Mass/Vol] 0.89 mg/dL Normal 0.70-1.30 [facility] Comment on above: Performed By: #### L [id number] #### [facility] (DEFAULT) [address] [place] [address] eGFR, CKD-EPI, Male > Normal >=60 [facility] Comment on above: Result Comment: Repo rted eGFR is based on the CKD-EPI 2020 equation using creatinine, age, and sex. Performed By: #### L [id number] #### [facility] (DEFAULT) [address] [place] [address] Glucose [Mass/Vol] 85 mg/dL Normal 70-99 [facility] Comment on above: Performed By: #### L [id number] #### [facility] (DEFAULT) [address] [place] [address] Osmolality [Osmolality] 290 mosm/kg Normal 278-305 [facility] Comment on above: Performed By: #### L [id number] #### [facility] (DEFAULT) [address] [place] [address] Potassium [Moles/Vol] 3.9 mmol/L Normal 3.5-5.0 [facility] Comment on above: Performed By: #### L [id number] #### [facility] (DEFAULT) [address] [place] [address] Sodium [Moles/Vol] 139 mmol/L Normal 135-145 [facility] Comment on above: Performed By: #### L [id number] #### [facility] (DEFAULT) [address] [place] [address] Urea nitrogen [Mass/Vol] 12 mg/dL Normal 7-25 [facility] Comment on above: Performed By: #### L [id number] #### [facility] (DEFAULT) [address] [place] [address] Urea nitrogen/Creatinine [Mass ratio] 13 mg/mg Normal [facility] Comment on above: Performed By: #### L [id number] #### [facility] (DEFAULT) [address] [place] [address] Anion gap [Moles/Vol] 12 mmol/L 7 - 17 mmol/L [facility] Chloride [Moles/Vol] 104 mmol/L 98 - 10 8 mmol/L [facility] CO2 [Moles/Vol] 27 mmol/L 21 - 31 mmol/L [facility] Creatinine [Mass/Vol] 0.89 mg/dL 0.70 - 1.30 mg/dL [facility] GFR/1.73 sq M.predicted CKD-EPI (S/P/Bld) [Vol rate/Area] - [facility] Comment on above: Reported eGFR is bas ed on the CKD-EPI 2020 equation using creatinine, age, and sex. Glucose [Mass/Vol] 85 mg/dL 70 - 99 mg/dL [facility] Osmolality Calc [Osmolality] 290 [facility] Potassium [Moles/Vol] 3.9 mmol/L 3.5 - 5.0 mmol/L [facility] Sodium [Moles/Vol] 139 mmol/L 135 - 145 mmol/L [facility] Urea nitrogen [Mass/Vol] 12 mg/dL 7 - 25 mg/dL [facility] Urea nitrogen/Creatinine [Mass ratio] 13 mg/mg [facility] CMV IGG/IGM TOTAL - CIBCon 1 05-27-2021 CMV Antibody (total IgG/IgM) Negative Normal [facility] Comment on above: Result Comment: [id number] Testing performed by [address] [place] [address] Performed By: #### L [id number] #### [facility] (DEFAULT) [address] [place] [address] DLIDON PERFOMABLEon 03-26-20 22 BKR CIRBC [id number] Normal [facility] Comment on above: Result Comment: Test ing performed by [address] [place] [address] Performed By: #### L [id number] #### [facility] (DEFAULT) [address] [address] Chagas Antibody (T. cruzi) Negative Normal [facility] Comment on above: Result Comment: Test ing performed by [address] [place] [address] Performed By: #### L [id number] #### [facility] (DEFAULT) [address] [place] [address] HBV SAM (IDT) Negative Normal [facility] Comment on above: Result Comment: Test ing performed by [address] [place] [address] Performed By: #### L [id number] #### [facility] (DEFAULT) [address] [address] HCV SAM (IDT) Negative Normal [facility] Comment on above: Result Comment: Test ing performed by [address] [place] [address] Performed By: #### L [id number] #### [facility] (DEFAULT) [address] [place] [address] Hepatitis B Core Antibody Negative Normal [facility] Comment on above: Result Comment: Test ing performed by [address] [place] [address] Performed By: #### L [id number] #### [facility] (DEFAULT) [address] [address] Hepatitis B Surface Antigen Negative Normal [facility] Comment on above: Result Comment: Test ing performed by [address] [place] [address] Performed By: #### L [id number] #### [facility] (DEFAULT) [address] [place] [address] Hepatitis C Virus Antibody Negative Normal [facility] Comment on above: Result Comment: Test ing performed by [address] [place] [address] Performed By: #### L [id number] #### [facility] (DEFAULT) [address] [address] HIV SAM (IDT) Negative Normal [facility] Comment on above: Result Comment: Test ing performed by [address] [place] [address] Performed By: #### L [id number] #### [facility] (DEFAULT) [address] [address] HIV-1/2/O Antibody Negative Normal [facility] Comment on above: Result Comment: Test ing performed by [address] [place] [address] Performed By: #### L [id number] #### [facility] (DEFAULT) [address] [address] West Nile Virus SAM (IDT) Negative Normal [facility] Comment on above: Result Comment: Test ing performed by [address] [place] [address] Performed By: #### L [id number] #### [facility] (DEFAULT) [address] [place] [address] EBV VCA IGG ABon 03-26-2022 EBV VCA IgG Antibody Negative Normal Negative [facility] Comment on above: Performed By: #### E BVG #### [facility] (DEFAULT) [address] [place] [address] MAGNESIUMon 03-26-2022 Magnesium [Mass/Vol] 2.1 mg/dL Normal 1.6-2.6 [facility] Comment on above: Performed By: #### L [id number] #### [facility] (DEFAULT) [address] [place] [address] Magnesium [Mass/Vol] 2.1 mg/dL 1.6 - 2 .6 mg/dL [facility] NOVEL CORONAVIRUS PCRon SARS-CoV-2 (COVID-19) RNA GILDA+probe Ql (Unsp spec) Not detected NOT DETECTED [facility] Comment on above: [facility] Negative results do not preclude SARS-CoV-2 infection and should not be used as the sole basis for treatment or other patient management decisions. Optimum specimen types and timing for peak viral levels during infections caused by SARS-CoV-2 has not been determined. The possibility of a false negative result should especially be considered if the patient's recent exposures or clinical presentation suggest that SARS-CoV-2 infection is probable, and diagnostic tests for other causes of illness (e.g., other respiratory illness) are negative. Collection of a new specimen and re-testing may be necessary if the patient is critically ill or clinically deteriorating. SARS-CoV-2 (COVID-19) RNA GILDA+probe Ql (Unsp spec) Not detected Normal NOT DETECTED [facility] Comment on above: Order Comment: Viral transport media or BAL specimen - Collection must be done while wearing N-95 mask, eye protection, gown and gloves. Please label ALL specimens as 2019-nCoV rule out and deliver by hand. This test was performed using Isolation Washer Mediated Amplification and has been approved as Emergency Use Authorization (EUA) for the qualitative detection of SARS-CoV-2 nucleic acid. Result Comment: [facility] Negative results do not preclude SARS-CoV-2 infection and should not be used as the sole basis for treatment or other patient management decisions. Optimum specimen types and timing for peak viral levels during infections caused by SARS-CoV-2 has not been determined. The possibility of a false negative result should especially be considered if the patient's recent exposures or clinical presentation suggest that SARS-CoV-2 infection is probable, and diagnostic tests for other causes of illness (e.g., other respiratory illness) are negative. Collection of a new specimen and re-testing may be necessary if the patient is critically ill or clinically deteriorating. Performed By: #### L [id number] #### [facility] (DEFAULT) [address] [place] [address] No Panel Informationon 03-26 Interpretation and review of laboratory results Normal [facility] PHOSPHATE, INORGANICon 03-26 Phosphorous 2.6 mg/dL Normal 2.2-4.6 [facility] Comment on above: Performed By: #### L [id number] #### [facility] (DEFAULT) [address] [place] [address] Phosphate [Mass/Vol] 2.6 mg/dL 2.2 - 4 .6 mg/dL [facility] PT,INR,PTTon 03-26-2022 aPTT Coag (Bld) [Time] 32.6 s Normal 24.0-34.3 [facility] Comment on above: Performed By: #### P TPTT #### [facility] (DEFAULT) [address] [place] [address] INR Coag (PPP) [Relative time] 1.1 {INR} Normal 0.9-1.1 [facility] Comment on above: Performed By: #### P TPTT #### [facility] (DEFAULT) [address] [place] [address] PT Coag (PPP) [Time] 14.1 s Normal 11.9-14.2 [facility] Comment on above: Performed By: #### P TPTT #### [facility] (DEFAULT) [address] [place] [address] aPTT Coag (PPP) [Time] 32.6 s [facility] INR Coag (Bld) [Relative time] 1.1 {INR} 0.9 - 1.1 [facility] Interpretation and review of laboratory results Normal [facility] PT Coag (PPP) [Time] 14.1 s [facility] RPR (CIBC)on 03-26-2022 Syphillis (PK-TP) Negative Normal [facility] Comment on above: Result Comment: [id number] Testing performed by [facility] [address] [place] [address] Performed By: #### X RPR #### [facility] (DEFAULT) [address] [place] [address] SARS-CoV-2 (COVID-19) RNA NA A+probe Ql (Unsp spec)on 03-26-2022 Interpretation and review of laboratory results Normal [facility] This test was performed using Isolation Washer Mediated Amplification and has been approved as Emergency Use Authorization (EUA) for the qualitative detection of SARS-CoV-2 nucleic acid. [facility] TYPE AND SCREEN - PREADMISSI ONon 03-26-2022 ABO/RH(D) TYPE Positive [facility] ABO/RH(D) TYPE Positive Normal [facility] Comment on above: Performed By: #### X MPO #### [facility] (DEFAULT) [address] [place] [address] URINALYSIS REFLEX TO CULTURE PERFORMABLEon 03-26-2022 Appearance (U) Clear Normal Clear [facility] Comment on above: Performed By: #### U [id number] #### [facility] (DEFAULT) [address] [place] [address] Bacteria ABSENT Normal ABSENT [facility] Comment on above: Performed By: #### U [id number] #### [facility] (DEFAULT) [address] [place] [address] Blood Urine Negative Normal Negative [facility] Comment on above: Performed By: #### U [id number] #### [facility] (DEFAULT) [address] [place] [address] Color (U) Yellow Normal Yellow [facility] Comment on above: Performed By: #### U [id number] #### [facility] (DEFAULT) [address] [place] [address] Glucose Ql (U) Negative Normal Negative [facility] Comment on above: Performed By: #### U [id number] #### [facility] (DEFAULT) [address] [place] [address] Ketones Ql (U) Negative Normal Negative [facility] Comment on above: Performed By: #### U [id number] #### [facility] (DEFAULT) [address] [place] [address] Leukocyte esterase Test strip Ql (U) Negative Normal Negative [facility] Comment on above: Performed By: #### U [id number] #### [facility] (DEFAULT) [address] [place] [address] Nitrites Urine Negative Normal Negative [facility] Comment on above: Performed By: #### U [id number] #### [facility] (DEFAULT) [address] [place] [address] pH (U) 6.0 [pH] Normal 5.0-7.0 [facility] Comment on above: Performed By: #### U [id number] #### [facility] (DEFAULT) [address] [place] [address] Protein Urine Negative Normal Negative [facility] Comment on above: Performed By: #### U [id number] #### [facility] (DEFAULT) [address] [place] [address] RBC Urine 0-2 Normal 0-2 [facility] Comment on above: Performed By: #### U [id number] #### [facility] (DEFAULT) [address] [place] [address] Specific Ramona Urine 1.008 Normal 1.001-1.035 [facility] Comment on above: Performed By: #### U [id number] #### [facility] (DEFAULT) [address] [place] [address] Squamous/Epithelial Cells ABSENT Normal 1/hpf = 1+, 2-5/hpf = 2+, 0/hpf = 0+, ABSENT [facility] Comment on above: Performed By: #### U [id number] #### [facility] (DEFAULT) [address] [place] [address] Urobilinogen Urine 0.2 E.U./dL Normal 0.2 E.U/d L, 1.0 E.U/dL [facility] Comment on above: Performed By: #### U [id number] #### [facility] (DEFAULT) [address] [place] [address] WBC Urine 0-5 Normal 0-5 [facility] Comment on above: Performed By: #### U [id number] #### [facility] (DEFAULT) [address] [place] [address] Appearance (U) Clear Clear [facility] Bacteria LM Ql (Urine sed) ABSENT ABSENT [facility] Color (U) Yellow Yellow [facility] Epithelial cells.squamous LM Ql (Urine sed) ABSENT 1/hpf = 1+, 2-5/hpf = 2+, 0/hpf = 0+, ABSENT [facility] Glucose Test strip (U) [Mass/Vol] Negative Negative [facility] Interpretation and review of laboratory results Normal [facility] Ketones (U) [Mass/Vol] Negative Negative [facility] Leukocyte esterase Test strip Ql (U) Negative Negative [facility] Nitrite Ql (U) Negative Negative [facility] pH (U) 6.0 [pH] 5.0 - 7.0 [facility] Protein (U) [Mass/Vol] Negative Negative [facility] RBC (U) [#/Vol] Negative [facility] RBC LM.HPF (Urine sed) [#/Area] 0-2 [facility] Specific gravity (U) [Rel density] 1.008 1.001 - 1.035 [facility] Urobilinogen (U) [Mass/Vol] 0.2 E.U./dL 0.2 E.U/dL, 1.0 E.U/dL [facility] WBC LM.HPF (Urine sed) [#/Area] 0-5 [facility] XR CHEST PA AND LATERALon XR CHEST PA AND LATERAL EXAM: XR CHEST PA AND LATERAL, 03/26/2022 11:54 AM COMPARISON: July 10, 2021 CLINICAL INDICATIONS: LIVING KIDNEY DONOR EVALUATION RELEVANT CLINICAL HISTORY: Z52.4:Kidney donor FINDINGS: (Adequate technique) Implanted Devices: None Lungs: Clear, without mass, interstitial disease, or consolidation. Remote granulomatous disease. Pleural Spaces: No pleural effusion. No pneumothorax. Mediastinum and Tana: Normal Cardiac silhouette and great vessels: Normal heart size. Unremarkable aorta. Chest Wall: Normal IMPRESSION: No acute cardiopulmonary disease Normal [facility] XR Chest PA and Lateralon IMPRESSION: No acute cardiopulmonary disease OLOGY EXAM: XR CHEST PA AND LATERAL, 03/26/2022 11:54 AM COMPARISON: July 10, 2021 CLINICAL INDICATIONS: LIVING KIDNEY DONOR EVALUATION RELEVANT CLINICAL HISTORY: Z52.4:Kidney donor FINDINGS: (Adequate technique) Implanted Devices: None Lungs: Clear, without mass, interstitial disease, or consolidation. Remote granulomatous disease. Pleural Spaces: No pleural effusion. No pneumothorax. Mediastinum and Tana: Normal Cardiac silhouette and great vessels: Normal heart size. Unremarkable aorta. Chest Wall: Normal RADIOLOGY Kirsten Hernandez MD - 03/26/2022 EXAM: XR CHEST PA AND LATERAL, 03/26/2022 11:54 AM COMPARISON: July 10, 2021 CLINICAL INDICATIONS: LIVING KIDNEY DONOR EVALUATION RELEVANT CLINICAL HISTORY: Z52.4:Kidney donor FINDINGS: (Adequate technique) Implanted Devices: None Lungs: Clear, without mass, interstitial disease, or consolidation. Remote granulomatous disease. Pleural Spaces: No pleural effusion. No pneumothorax. Mediastinum and Tana: Normal Cardiac silhouette and great vessels: Normal heart size. Unremarkable aorta. Chest Wall: Normal IMPRESSION IMPRESSION: No acute cardiopulmonary disease [facility] Radiology Study observation (narrative) [facility] XR Chest PA and LateralOrder ed By: Kirsten Hernandez on 03-26-2022 [facility] Work Phone: CREAT/GFRon 07-11-2021 Creatinine [Mass/Vol] 0.73 mg/dL 0.70 - 1.30 mg/dL [facility] GFR/1.73 sq M.predicted among non-blacks MDRD (S/P/Bld) [Vol rate/Area] mL/min/{1.73_m2} >=60 mL/min/1.73m2 [facility] Comment on above: Reported eGFR equati on is based on the CKD-EPI 2009 equation. Interpretation and review of laboratory results Normal [facility] Test performed at address of the patient encounter. [facility] Cardiac echo study Procedure Ordered By: Fredo Grubbs on 07-10-2021 Ao peak hallie 1.00 m/s [facility] Work Phone: Ao VTI 20.69 cm [facility] Work Phone: Ascending aorta 3.10 cm [facility] Work Phone: AV LVOT peak gradient 3 mmHg [facility] Work Phone: AV mean gradient 3 mmHg [facility] Work Phone: AV peak gradient 4 mmHG [facility] Work Phone: AV valve area 3.27 cm2 [facility] Work Phone: AV Velocity Ratio [facility].[address] Work Phone: JANNA (continuity Vmax) 3.47 cm2 [facility] Work Phone: JANNA (continuity VTI) 3.27 cm2 [facility] Work Phone: JNANA index (continuity Vmax) 1.64 m/s [facility] Work Phone: JANNA index (continuity VTI) 1.55 cm2/m2 [facility]: Avg e' pk hallie 0.13 m/s [facility]: Avg E/e' ratio 6.05 [facility] Work Phone: Body surface area Derived from formula 2.11 m2 [facility] Work Phone: BP EF 54 % [facility] Work Phone: DI (Vmax) 0.80 [facility] Work Phone: DI (VTI) 0.75 m/2 [facility] Work Phone: E wave decelartion time 118.79 msec [facility] Work Phone: e' lateral pk hallie 0.1646 m/s [facility] Work Phone: e' lateral pk hallie 0.16 m/s [facility] Work Phone: e' septal pk hallie 0.0953 m/s [facility]: e' septal pk hallie 0.10 m/s [facility] Work Phone: E/A ratio 1.18 [facility] Work Phone: E/e' lateral ratio 4.43 [facility] Work Phone: E/e' septal ratio 7.66 [facility] Work Phone: EF SP 2CH 56 [facility] Work Phone: EF SP 4CH 52 [facility] Work Phone: EST RAP 3.00 mmHg [facility] Work Phone: FS 27 % 28 - 44 % [facility] Work Phone: IVC ostium 1.54 cm [facility] Work Phone: IVS 1.14 cm [facility] Work Phone: LA AREA 2CH 18.87 cm2 [facility] Work Phone: LA area 4CH 16.41 cm2 [facility] Work Phone: LA ESV BP (MOD) 50 mL [facility] Work Phone: LA ESV BP (MOD) index 24 mL/m2 [facility] Work Phone: LA ESV SP 2CH (MOD) 54 mL [facility] Work Phone: LA ESV SP 4CH (MOD) 42 mL [facility] Work Phone: LV EDV BP 155 mL [facility] Work Phone: LV EDV SP 2CH 173 mL [facility] Work Phone: LV EDV SP 4CH 131 mL [facility] Work Phone: LV ESV BP 71 mL [facility] Work [facility]: LV ESV SP 2CH 76 mL [facility] Work Phone: LV ESV SP 4CH 63 mL [facility] Work Phone: LV mass 221.38 g [facility] Work Phone: LV Mass Index 104.9 g/m2 [facility] Work Phone: LV RWT 0.42 [facility] Work Phone: LV stroke volume BP (ml) 84 mL [facility] Work Phone: LV stroke volume index BP 39.81 mL/m2 [facility] Work Phone: LVIDD 5.15 cm [facility] Work Phone: LVIDS 3.77 cm [facility] [facility] Work Phone: LVOT area 4.34 cm2 [facility] Work Phone: LVOT diameter 2.35 cm [facility] Work Phone: LVOT peak hallie 0.80 m/s [facility] Work Phone: LVOT peak VTI 15.59 cm [facility] Work Phone: LVOT stroke volume 68 cm3 [facility] Work Phone: LVOT stroke volume index 32.03 ml/m2 [facility] Work Phone: MV pk A hallie 0.62 m/s [facility] Work Phone: MV pk E hallie 0.73 m/s [facility] Work Phone: MV stenosis pressure 1/2 time 34.45 ms [facility] Work Phone: MV valve area p 1/2 method 6.39 cm2 [facility] Work Phone: [facility] AV VTI RATIO PRE STRESS 0.75 [facility] Work Phone: [facility] ECHO LV BIPLANE SYSTOLIC VOLUME INDEX 33.65 mL/m2 [facility] Work Phone: [facility] ECHO LV BP DIASTOLIC VOLUME INDEX 73.46 mL/m2 [facility] Work Phone: [facility] RVOT VTI RATIO 0.61 [facility] Work Phone: PV mean gradient 2 mmHg [facility] Work Phone: PV peak gradient 5 mmHg [facility] Work Phone: PV PK HALLIE 1.09 m/s [facility] Work Phone: PV VTI 21.19 cm2 [facility] Work Phone: PW 1.09 cm [facility] Work Phone: RA vol index 4CH (MOD) 25.12 mL/m2 [facility] Work Phone: Right atrium volume 4 chamber method of disks 53 mL [facility] Work Phone: RV Area diastolic 29.19 cm2 [facility] Work Phone: RV Area systolic 18.76 cm2 [facility] Work Phone: RV basal diam 4.28 cm [facility] Work Phone: RV Fractional area change 35.7 % [facility] Work Phone: RV long diam 9.45 cm [facility] Work Phone: RV mid diam 3.52 cm [facility] Work Phone: RV S' 12.71 cm/s [facility] Work Phone: RVOT peak gradient 1 mmHg [facility] Work Phone: RVOT peak hallie 0.57 m/s [facility] Work Phone: RVOT peak VTI 13.01 cm [facility] Work Phone: Sinus 3.13 cm [facility] Work Phone: STJ 2.92 cm [facility] Work Phone: Stroke Volume 68 cm/mL [facility] Work Phone: Stroke volume index 32 [facility] Work Phone: TAPSE 2.32 cm [facility] Work Phone: [facility] Work Phone: Cardiac echo study Procedure on 07-10-2021 1. The left ventricular chamber size and systolic function are normal. Estimated LVEF 55-60%. 2. The right ventricular chamber size and systolic function are normal. 3. There is no hemodynamically significant valvular disease. Left Ventricle Chamber size is normal. Normal wall thickness. Normal global wall motion. Regional wall motion is normal. Ejection fraction is normal (55 - 60%). Diastolic function is normal. Right Ventricle Chamber size is normal. Systolic function is normal. Left Atrium Chamber size is normal. Right Atrium Chamber size is normal. IVC/SVC The inferior vena cava structure has a diameter <21 mm and decreases >50% during inspiration. Mitral Valve Normal appearing leaflets. Leaflet mobility is normal. Trace regurgitation. No valve stenosis. Tricuspid Valve Normal leaflets. Leaflet mobility is normal. No regurgitation. No stenosis. Pulmonary artery systolic pressure (PASP) is unable to be estimated. Aortic Valve Trileaflet valve. Leaflet mobility is normal. No regurgitation. No stenosis. Pulmonic Valve Normal structure. No regurgitation. No stenosis. Pericardium Appears normal. No pericardial effusion. Septum The atrial septum is normal. Aorta No dilation to extent seen. Study Details Study(s) performed: complete. Imaging system used: Siemens. Indications for study: other - Kidney Donor. Wall Scoring Score Index: 1.00 The left ventricular wall motion is normal. [facility] Radiology Study observation (narrative) [facility] XR Chest PA and Lateralon IMPRESSION: No acute cardiopulmonary findings OLOGY EXAM: XR CHEST PA AND LATERAL, 07/10/2021 12:45 PM COMPARISON: None CLINICAL INDICATIONS: evaluation for living kidney donation RELEVANT CLINICAL HISTORY: Z52.4:Donor, kidney FINDINGS: (Adequate technique) Implanted Devices: None Lungs: Clear, without mass, interstitial disease, or consolidation. Pleural Spaces: No pleural effusion. No pneumothorax. Mediastinum and Tana: Calcified granulomas Cardiac silhouette and great vessels: Normal heart size. Unremarkable aorta. Chest Wall: Normal RADIOLOGY Bertha Dillard DO - 07/10/2021 EXAM: XR CHEST PA AND LATERAL, 07/10/2021 12:45 PM COMPARISON: None CLINICAL INDICATIONS: evaluation for living kidney donation RELEVANT CLINICAL HISTORY: Z52.4:Donor, kidney FINDINGS: (Adequate technique) Implanted Devices: None Lungs: Clear, without mass, interstitial disease, or consolidation. Pleural Spaces: No pleural effusion. No pneumothorax. Mediastinum and Tana: Calcified granulomas Cardiac silhouette and great vessels: Normal heart size. Unremarkable aorta. Chest Wall: Normal IMPRESSION IMPRESSION: No acute cardiopulmonary findings [facility] Radiology Study observation (narrative) [facility] XR Chest PA and LateralOrder ed By: Bertha Dillard on 07-10-2021 [facility] Work Phone: Vital Signs Date Time Vital Sign Value Performing Clinician Facility 04-01-2022 12:41-0500 Body temperature 98.8 [degF] Katy Chavez MD, PhD Work Phone: [facility] 04-01-2022 12:41-0500 Diastolic blood pressure 103 mm[Hg] Katy Chavez MD, PhD Work Phone: [phone] [address] 04-01-2022 12:41-0500 Heart rate 80 /min Katy Chavez MD, PhD Work Phone: [phone] [address] 04-01-2022 12:41-0500 Respiratory rate 18 /min Katy Chavez MD, PhD Work Phone: [phone])[phone] [place] [address] 04-01-2022 12:41-0500 SaO2% (BldA) [Mass fraction] 95 % Katy Chavez MD, PhD Work Phone: 7(168)[phone] [address] 04-01-2022 12:41-0500 Systolic blood pressure 147 mm[Hg] Katy Chavez MD, PhD Work Phone: 5([phone] [address] 2022 12:25-0500 Body mass index (BMI) [Ratio] 29.19 kg/m2 Katy Chavez MD, PhD Work Phone: 3([phone] [place] [address] 2022 12:25-0500 Body weight 94.94 kg Katy Chavez MD, PhD Work Phone: [phone] [place] [address] Comment on above: standing scale 03-30-2022 05:34-0500 Body height 180.3 cm Katy Chavez MD, PhD Work Phone: [phone] [address] 03-26-2022 10:47-0500 Diastolic blood pressure 103 mm[Hg] [facility] 03-26-2022 10:47-0500 Systolic blood pressure 135 mm[Hg] [facility] 03-26-2022 09:00-0500 Heart rate 75 /min [facility] 03-26-2022 08:59-0500 Body mass index (BMI) [Ratio] 28.9 kg/m2 [facility] 03-26-2022 08:59-0500 Body temperature 97.7 [degF] [facility] 03-26-2022 08:59-0500 Body weight 93.98 kg [facility] 07-10-2021 14:53-0400 Body height 180.3 cm Kendrick Dugan MD Work Phone: [facility] 07-10-2021 14:53-0400 Body mass index (BMI) [Ratio] 28.01 kg/m2 Kendrick Dugan MD Work Phone: [facility] 07-10-2021 14:53-0400 Body weight 91.1 kg Kendrick Dugan MD Work Phone: [facility] 07-10-2021 14:53-0400 Diastolic blood pressure 86 mm[Hg] Kendrick Dugan MD Work Phone: [facility] 07-10-2021 14:53-0400 Systolic blood pressure 152 mm[Hg] Kendrick Dugan MD Work Phone: [facility] Encounters Encounter Date Encounter Type Care Provider Facility Start: 03-02-2025 End: 03-02-2025 ambulatory Chata Hammond [place] Start: 01-13-2025 End: 01-13-2025 Patient encounter procedure Ayaz BLANC -[facility] Work Phone: Start: 01-13-2025 End: 01-13-2025 ambulatory No Primary Care Physician -[facility] Start: 12-14-2024 End: 12-14-2024 [facility] Start: 09-21-2024 End: 09-21-2024 Emergency department patient visit LEDY BEARD [facility] Start: 06-12-2024 End: 06-12-2024 ambulatory ANDREA EDMONDSON [facility] Start: 05-29-2024 ambulatory KENDRICK DUGAN [facility] Start: 04-30-2022 ambulatory SELF SELF Facility:[facility] Start: 03-30-2022 End: 04-01-2022 Evaluation and management of inpatient KATY CHAVEZ Facility:[facility] Start: 03-30-2022 End: 04-01-2022 Evaluation and management of inpatient Katy Chavez MD, PhD Work Phone: [phone] Comment on above: Kidney donor Start: 03-26-2022 ambulatory SELF SELF Facility:[facility] Start: 03-26-2022 End: 03-26-2022 Subsequent hospital visit by physician Amisha Ruffin MD Work Phone: [facility] Comment on above: Arrived Start: 03-26-2022 ambulatory SELF SELF Facility:[facility] Start: 03-26-2022 End: 03-26-2022 Clinical Support Encounter [facility] Transplant [facility] Comment on above: Kidney donor (Primar y Dx) Start: 07-10-2021 End: 07-10-2021 Subsequent hospital visit by physician Kendrick Dugan MD Work Phone: [facility] Start: 07-10-2021 End: 07-10-2021 Subsequent hospital visit by physician Katy Chavez MD, PhD Work Phone: [facility] Comment on above: Arrived Start: 07-10-2021 End: 07-10-2021 Subsequent hospital visit by physician Katy Chavez MD, PhD Work Phone: [facility] Comment on above: Arrived Start: 07-10-2021 End: 07-10-2021 Patient encounter procedure Katy Chavez MD, PhD Work Phone: [facility] Transplant [facility] Comment on above: Donor, kidney (Prima ry Dx) Procedures Date Procedure Procedure Detail Performing Clinician Start: 2022 Blood count hematocrit Cornelia LI Work Phone: Start: 03-30-2022 CARDIAC RHYTHM Other Ot her Start: 03-30-2022 PRE-TX LIVING DONOR ACD SAMPLE (TISSUE TYPING) Carol Mckenna FEED HOUSE SUPERVISOR-SPANISH SPEAKING NANNY Work Phone: Start: 03-30-2022 PRE-TX LIVING DONOR SERUM SAMPLE Carol César Mckenna FEED HOUSE SUPERVISOR-SPANISH SPEAKING NANNY Work Phone: Start: 03-26-2022 Antibody screen [facility] Start: 03-26-2022 SARS-CoV-2 (COVID-19 ) RNA [Presence] in Unspecified specimen by GILDA with probe detection Katy Chavez MD, PhD Work Phone: Start: 03-26-2022 Radiologic exam ches t 2 views Katy Chavez MD, PhD Work Phone: Start: 03-26-2022 Antibody screen SELF SE LF Comment on above: Performed By: #### X MPO #### [facility] ([facility]) [facility].[address] [place] [address] Start: 03-26-2022 Assay of magnesium Katy Chavez MD, PhD Work Phone: Start: 03-26-2022 Blood typing serolog ic abo Katy Chavez MD, PhD Work Phone: Start: 03-26-2022 Urnls dip stick/tabl et reagent auto microscopy Katy Chavez MD, PhD Work Phone: Start: 07-10-2021 Echo tthrc r-t 2d w/wom-mode compl spec&colr d Kendrick Dugan MD Work Phone: Start: 07-10-2021 Creatinine blood Katy davis MD, PhD Work Phone: Start: 07-10-2021 Radiologic exam ches t 2 views Kendrick Dugan MD Work Phone: Plan of Treatment Date Care Activity Detail Author Start: 04-30-2022 End: 04-30-2022 Patient encounter procedure 04/30/2022 Office Visit Transplant Surgery Katy Chavez MD, PhD [address] [place] [address] [facility] Trans[facility] Start: 03-30-2022 End: 03-30-2022 Laparoscopy donor nephrectomy living donor DONOR NEPHRECTOMY LIVING DONOR LAPAROSCOPIC Kidney donor 03/30/2022 7:00 AM EST [facility] Start: 03-30-2022 End: 03-30-2022 Evaluation and management of inpatient SIMON Comment on above: Kidney donor DONOR NEPHRECTOMY LI VING DONOR LAPAROSCOPIC Start: 03-26-2022 End: 03-22-2023 Standard ECG ECG ECG Routine Kidney donor Expected: 03/26/2022, Expires: 03/22/2023 [facility] Comment on above: Expected: 03/26/2022 , Expires: 03/22/2023 Start: 03-22-2022 End: 03-22-2023 Calcium [Mass/volume] in Serum or Plasma CALCIUM Lab Routine Kidney donor Expected: 03/22/2022, Expires: 03/22/2023 [facility] Work Phone: Comment on above: Expected: 03/22/2022 , Expires: 03/22/2023 Start: 03-22-2022 End: 03-22-2023 [facility] Lab Routine Kidney donor Expected: 03/22/2022, Expires: 03/22/2023 [facility] Comment on above: Expected: 03/22/2022 , Expires: 03/22/2023 Start: 03-22-2022 End: 03-22-2023 DONOR T&B FLOW CROSSMATCH DONOR T&B FLOW CROSSMATCH Lab Routine Kidney donor Expected: 03/22/2022, Expires: 03/22/2023 [facility] Comment on above: Expected: 03/22/2022 , Expires: 03/22/2023 Start: 03-22-2022 End: 03-22-2023 EBV VCA IGG AB EBV VCA IGG AB Lab Routine Kidney donor Expected: 03/22/2022, Expires: 03/22/2023 [facility] Comment on above: Expected: 03/22/2022 , Expires: 03/22/2023 Start: 03-22-2022 End: 03-22-2023 TXP LIVING DONOR TXP LIVING DONOR Lab Routine Kidney donor Expected: 03/22/2022, Expires: 03/22/2023 [facility] Comment on above: Expected: 03/22/2022 , Expires: 03/22/2023 Start: 03-22-2022 End: 03-22-2023 URINALYSIS REFLEX TO CULTURE URINALYSIS REFLEX TO CULTURE Fluids Routine Kidney donor Expected: 03/22/2022, Expires: 03/22/2023 [facility] Comment on above: Expected: 03/22/2022 , Expires: 03/22/2023 Start: 12-21-2021 Influenza vaccination INFLUENZA VACC INE (#1) [facility] Start: 12-21-2020 Influenza vaccination INFLUENZA VACC INE (#1) [facility] Start: 08-11-2020 Tetanus vaccination TETANUS [facility] Start: 2006 Third diphtheria, tetanus and acellular pertussis (DTaP) vaccination TDAP (ADULT) [facility] Start: 2005 Tetanus vaccination TETANUS [facility] Start: 2002 HIV screening HIV SCREENING DISCUSSION [facility] Start: 1992 COVID-19 VACCINE (1) COVID-19 VACCIN E (1) [facility] Start: 1987 COVID-19 VACCINE (#1) COVID-19 VACCI NE (#1) [facility] Start: 1987 Hepatitis C antibody , confirmatory test HEPATITIS C VIRUS SCREENING [facility] Start: 1987 Hepatitis C screening HEPATITI S C VIRUS SCREENING [facility] HILDA AURIS SCREEN BY PCR HILDA AURIS SCREEN BY PCR Microbiology Routine 03/30/2022 9:48 PM EST [facility] Lab Routine Kidney donor 03/26/2022 9:37 AM EST [facility] End: 07-10-2021 CT angiography of renal artery [facility] Work Phone: Comment on above: 1 Occurrences starti ng 07/10/2021 until 07/10/2021 DLIDON PERFOMABLE DLIDON PERFOMA BLE Lab Routine Kidney donor 03/26/2022 9:37 AM EST [facility] DONOR T&B FLOW CROSSMATCH DONOR T&B FLOW CROSSMATCH Lab Routine Kidney donor 03/26/2022 9:37 AM EST [facility] EBV VCA IGG AB EBV VCA IGG AB L ab Routine Kidney donor 03/26/2022 9:37 AM [facility] EXTRA MICRO EXTRA MICRO Flui ds Routine Kidney donor 03/26/2022 9:37 AM [facility] Reagin Ab [Presence] in Serum by [facility]) Lab Routine Kidney donor 03/26/2022 9:37 AM [facility] TXP LIVING DONOR TXP LIVING DONO R Lab Routine Kidney donor 03/26/2022 9:37 AM [facility] URINALYSIS REFLEX TO CULTURE URINALYSIS REFLEX TO CULTURE Fluids Routine Kidney donor 03/26/2022 9:37 AM [facility] End: 03-30-2022 US Unspecified body region US IMAGING REGIONAL ANESTHESIA Imaging Routine One Time for 1 Occurrences starting 03/30/2022 until 03/30/2022 [facility] Comment on above: One Time for 1 Occur rences starting 03/30/2022 until 03/30/2022 Immunizations Immunization Date Immunization Notes Care Provider Donald dee 02-13-2018 influenza virus vaccine, unspecified formulation [facility] Payers Date Payer Category Payer Unknown [id number] 2025 Self-pay 2021 Unknown [id number] 2018 Unknown [id number] 2018 Unknown [id number] 1987 Unknown [id number] 2.16. [id number] 1987 Unknown [id number] 2.16. [id number] 1987 Unknown [id number] 2.16. [id number] 1987 Unknown [id number] 2.16. [id number] 1987 Unknown [id number] 2.16.8 [id number] 1987 Unknown [id number] 2.16.8 [id number] 1987 Unknown [id number] 2.16.8 [id number] Unknown [id number] Unknown [id number] 2.16.8 [id number] Unknown [id number] 2.16.8 [id number] Social History Date Type Detail Facility Start: 06-30-2021 Tobacco smoking status NHIS Never smoked tobacco [facility] Start: 06-30-2021 Tobacco use and exposure Smokeless tobacco non-user [facility] Start: 07-10-2021 End: 03-30-2022 Alcohol intake Ex-drinker (finding) [facility] Start: 1985 Sex Assigned At Not on file [facility] Start: 06-30-2021 End: 03-30-2022 Exposure to SARS-CoV-2 (event) Not sure [facility] Tobacco smoking status NHIS Unknown if ever smoked [place] [facility] Work Phone: Sex Male [facility] Start: 1985 Sex Assigned At Male [facility] Clinical Notes 07-10-2021 to 12-16-2024 Jacqueline Petty, RN - 04/01/2022 1:52 PM Yeimi Owens, EDUCATIONAL ADVISOR - 04/01/2022 1:36 PM Issac Carpenter, MACHINING AND ASSEMBLY SUPERVISOR - 04/01/2022 12:49 PM Issac Carpenter, MACHINING AND ASSEMBLY SUPERVISOR - 04/01/2022 12:48 PM EST(Routine) Note Date & Type Note Facility 12-16-2024 [facility] HISTORY & PHYSICAL NAME ACCOUNT SEX AGE ADMIT DISCHARGE PT MED. RECORD# NUMBER DATE DATE TYPE LEDY DOVER [id number] M 39 12/14/24 2 C [id number] ROOM: [facility] DATE OF : [birth year] DICTATING PHYSICIAN: Dara Carrero CHIEF COMPLAINT: Diagnostic colonoscopy. HISTORY OF PRESENT ILLNESS: Mr. Dover is a 39-year-old male who presents with mucoid drainage from his rectum. He denies any fecal incontinence. He denies any pain. He denies any blood. He denies any weight loss. Bowel movements have been characterized as normal. He does report that he took a course of antibiotics for a toe infection, and it seemed as though the mucoid drainage had improved. PAST MEDICAL HISTORY: Hypertension. PAST SURGICAL HISTORY: Status post kidney donation. MEDICATIONS: See JUN. ALLERGIES: No known drug allergies. SOCIAL HISTORY: Negative x3. REVIEW OF SYSTEMS: Ten-system review of systems is negative. PHYSICAL EXAMINATION GENERAL APPEARANCE: He is alert, oriented and appropriate with no acute distress. VITAL SIGNS: He is afebrile. Vital signs are stable and within normal limits. LUNGS: Lungs are clear to auscultation bilaterally. HEART: Regular rate and rhythm. ABDOMEN: Abdomen is soft, nontender and nondistended. EXTREMITIES: No cyanosis, edema or gross deformities. NEUROLOGIC: GCS is 15. Cranial nerves II through XII are grossly intact. He has 5/5 muscle strength in all groups, and sensation is grossly intact. IMPRESSION: A 39-year-old male with mucoid drainage from the anus. Page 1 of 2 LEDY DOVER History & Physical JAZZMINELEDY :1985 PLAN: I discussed the risks, benefits, and alternatives of colonoscopy. All questions were answered, and he voiced understanding and agreement with the plan and procedure. Dictated By: Dara Carrero MD 12/14/24 09:04 JOB #: [id number] Transcribed By: maria isabel 12/14/24 09:42 Electronically signed by: E-SIGN DR. CARERRO 12/16/24 08:58 Update to H&P: [ ] No changes: I have examined the patient and reviewed the H&P and there are no changes. [ ] As previously dictated with the following changes: PHYSICIAN SIGNATURE: TIME: DATE: Page 2 of 2 LEDY DOVER History & Physical [facility] 04-01-2022 History of Present illness Narrative Final Discharge Planning and Transportation Final Discharge Planning Discharge Disposition: Home Plan Discharge to home with outpatient follow ups. Patient/Family In Agreement With Plan: yes CM had conversation with patient/caregiver related to specialty care follow-up. Barriers identified: None Outpatient CM was not contacted related to barriers Transportation Mode of Transfer: private vehicle Transfer/Transport Equipment: copy of patient Records Discharge Instructions for Bedside RN: 1-print off MERLE 2-print off MERLE order (found in the MERLE) 3-print off AVS Jacqueline Iraheta RN Clinical Bacteriologist [employer] Focused Assessment for Discharge Planning Patient is here for transplant donor. Initial Discharge Planning Anticipated discharge disposition: Home Transportation Available for Discharge: Private Vehicle, Family or Friend Anticipated DME: none Anticipated Services at Discharge: Outpatient follow up Advanced Care Planning Assessment Advanced Care Planning Has the patient completed Advance Directives?: Not Completed Referral to Social Work for Advance Care Planning? : Patient Declines HCPOA Agent(s): None Legal Next of Kin: 1Kendrick Dover spouse [phone] Financial Resources Insurance: Yes Prescription Coverage: Yes Resources Needed: No Resources Provided: N/A Living Environment and Support System Patient resided with spouse and child independently prior to hospitalization. Patient Resources Prior to Admission Post-acute Services: no Community Resources: no DME: no PCP: MARQUITA Lobo (per patient he has not been to PCP in 2 years) Patient's goal for discharge is home with outpatient follow up. Marylu RYAN Clinical Bacteriologist [employer] [facility] Discharge planning ERIN called pt in order to confirm pt's Discharge plan after his recent donation. Pt donated to his [id number] on 03/30/2022. Pt stated that he is starting to feel a little better and hopes to go home later today. Pt stated that his Discharge plan remains the same in that he will return home with his assisting him. LDA reminded pt to fill his prescriptions at [facility] upon Discharge. LDA reminded pt that he will have follow-up appointments 4-6 weeks, 6 months, one year and two years post donation and stressed the importance of completing them. Pt verbalized his understanding. ERIN verified that pt has contact information and encouraged him to call with any concerns. Sarah TIRADO,MACHINING AND ASSEMBLY SUPERVISOR Living Donor Advocate [phone] LDA called pt in order to follow-up with him regarding his recent donation. Pt donated to his [id number] on 03/30/2022. Pt stated that he is starting to feel a little better and hopes to go home later today. Pt stated that he feels positive about being able to donate. Pt denied experiencing any depression, anxiety or PTSD associated with donating. LDA reminded pt that depression and anxiety are common post donation and encouraged him to call this LDA if he experiences any symptoms. LDA provided emotional support. Pt did not identify any additional needs. LDA verified that pt has contact information and encouraged him to call with any concerns. Sarah TIRADO,MACHINING AND ASSEMBLY SUPERVISOR Independent Living Donor Advocate [phone] Images from the original note were not included. [facility] ([facility] Delivery Note: The following medications were delivered to the patient's bedside: Amisha Mackey Bedside Delivery: [phone] Jakub Bedside Delivery: [phone] East: [phone] TRANSPLANT SURGERY IMMUNOSUPPRESSION/ PROGRESS NOTE: Date of Service: 04/01/2022 Admit Date: 03/30/2022 Date of last transplant: 03/30/22 Surgery Post-op Days: 2 Days Post-Op s/p Procedure(s) (LRB): DONOR NEPHRECTOMY LIVING DONOR LAPAROSCOPIC (Left) SUBJECTIVE/INTERVAL UPDATE NAEON. Patient without complaint this am OBJECTIVE: BP (!) 158/99 (BP Location: Right arm, BP Position: Lying) Pulse 83 Temp 97.9 F (36.6 C) (Oral) Resp 18 Ht 1.803 m (5' 11) Wt 94.9 kg (209 lb 4.8 oz) Comment: standing scale SpO2 99% BMI 29.19 kg/m Smoking Status Never Intake/Output Summary (Last 24 hours) at 04/01/2022 0826 Last data filed at 04/01/2022 0801 Gross per 24 hour Intake 2833.55 ml Output 4725 ml Net -1891.45 ml Physical Exam: General: No acute distress Neuro: alert and oriented x 3 Cardiovascular: regular rate and rhythm, no murmurs, rubs, gallops Pulmonary: CTAB Abdomen: soft, mildly distended, incision-clean, dry, intact with sahra Extremities: warm and well perfused, 2+dp/pt pulses Skin: no lesions PMH/PSH/ROS: Refer to H&P Medications: Refer to MAR Labs: Lab Results Component Value Date WBC 5.79 03/26/2022 HGB 12.9 (L) 2022 HCT 38.0 (L) 2022 PLATELET 298 03/26/2022 MCV 90.3 03/26/2022 Lab Results Component Value Date SODIUM 139 03/26/2022 POTASSIUM 3.9 03/26/2022 CHLORIDE 104 03/26/2022 CO2 27 03/26/2022 BUN 19 2022 CREATSERUM 1.42 (H) 2022 GLUCOSE 85 03/26/2022 Lab Results Component Value Date ALT 25 07/10/2021 AST 25 07/10/2021 GGT 19 07/10/2021 ALKPHOS 82 07/10/2021 BILITOTAL 0.6 07/10/2021 BILIDIRECT 0.1 07/10/2021 No results found for: CYCLOSPORIN2, TACROLIMUS, SIROLIMUS, EVRLMSTRGH] ASSESSMENT/PLAN 2 Days Post-Op s/p Procedure(s) (LRB): DONOR NEPHRECTOMY LIVING DONOR LAPAROSCOPIC (Left) Ledy Dover is a 36 y.o. male with PMHx of HTN who presents for scheduled kidney donor nephrectomy. He is now s/p donor nephrectomy (L) 03/[address] Chavez Immunosuppression: n/a 1. Kidney Function Lab Results Component Value Date CREATSERUM 1.42 (H) 2022 UOP ~ 3125 mL/24 hours 2. Electrolytes: replace PNR 3. Nutrition: Regular diet 4. Ruano dc 5. Pain adequately controlled on intermittent narcotic 6. IV fluids: dc fluids 7. Prophylaxis: 1. DVT: subcutaneous heparin/SCDs 2. GI: colace, pepcid/protonix 3. Infectious: n/a 4. Cardiac: n/a 8. PT/OT consulted 9. Social work consulted 10. Dispo: UOOB today 1. Expected discharge date POD #2 Immunosuppression drug levels are being reviewed on a daily basis and appropriate dose changes are made based on these levels. The plan of care was discussed with the patient and nursing staff. All questions and concerns addressed. These multidisciplinary rounds were represented by transplant surgery including attending surgeon, fellow, advance practice provider and/or resident, transplant pharmacy, discharge planning and nursing. Janine Curran MD Associated attestation - Katy Chavez MD, PhD - 04/01/2022 10:02 AM EST I. Katy Chavez MD, PhD, have independently seen and examined the patient, reviewed the labs, discussed the patient with the fellow/resident and agree with the note. Surgery Post-Op Check Note S: Ledy Dover is a 36 y.o. male who is now Day of Surgery status post Procedure(s) (LRB): DONOR NEPHRECTOMY LIVING DONOR LAPAROSCOPIC (Left). I came to evaluate the patient after coming up to the hospital floor. Patient reports that his pain is well-controlled with CIGAR PACKER AND PICKER pump, he denies any chest pain or shortness of breath. He does report pain with deep breaths. He does endorse nausea and emesis x2 after PO intake when he states he drank too fast. Does report some R shoulder pain O: BP (!) 146/96 (BP Location: Right arm, BP Position: Lying) Comment: LESTER Pierce notified Pulse 87 Temp 98.2 F (36.8 C) (Oral) Resp 18 Ht 1.803 m (5' 11) Wt 93.9 kg (207 lb) SpO2 95% BMI 28.87 kg/m Smoking Status Never : Physical Exam Gen: Awake, alert, in NAD. Resting comfortably in bed. Lung: no increased work of breathing Cardiac: Hemodynamically stable. Regular rate as seen on monitor. Abdomen: Soft, appropriately tender, non-distended, no rebound/guarding/rigidity or other signs of peritonitis, surgical incisions c/d/i with moderate strike through Drains: Non Ruano: Clear urine Extremities: Warm and well perfused with gross sensation and motor intact, SCDs in place A/P: Ledy Dover is a 36 y.o. male who is now Day of Surgery s/p Procedure(s) (LRB): DONOR NEPHRECTOMY LIVING DONOR LAPAROSCOPIC (Left). Patient is recovering well post-operatively. - Diet: DIET CLEAR LIQUID - IVF: morphine CIGAR PACKER AND PICKER sodium chloride 0.9% 100 mL/hr at 03/30/22 1843 - Encourage use of anti-emetics, slower sips Angel Burdick MD General Surgery Reason for Consult: Renal Donor-Assess Discharge Needs Consulted By: TRR Assessment: SW received consult today for patient who presented to hospital for surgery scheduled on 03/30/22 as a kidney donor for his father in law. He is a 36 year old Male. He is alert, oriented x 3 . Prior to admission he was living with spouse and 4 month old child. He does not receive outside services and does not use durable medical equipment. He is independent with activities of daily living, including driving. Reviewed/updated demographic sheet. Patient denies vomiting, abdominal pain, fussiness, diarrhea, cough and difficulty breathing currently does not have a PCP. SW reviewed mental health symptoms and patient reports currently experiencing no symptoms, although previously experienced situational depression around 2 years ago (see donor assessment from June 2021). Patient reports a history of mental health difficulties including depression. Patient reports no current treatment for MH issues. Patient reports a history of thoughts of self harm or harm to others (intrusive suicidal thoughts while on prozac, never had a plan or intent, no recent SI or HI). Patient reports coping skills of reading, planning housing renovations, spending time with family. 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 Patient denies financial concerns related to taking time off from work related to his organ donation. Patient will not need transportation assistance home at discharge. Patient's primary support person at discharge will be spouse. Discharge Plan: SW provided emotional support & reflective listening. No further needs identified at this time. SW available to follow as needed. Patient will discharge to home with spouse; transportation to be provided by spouse. ISRAEL Suresh Lineman A Class NUTRITION CONSULT FOR DONOR NEPHRECTOMYASSESSMENT & EDUCATION Discharge Planning/Recommendations and Nutrition Plan of Care: 1. Advance diet as tolerated to least restrictive diet. 2. Will monitor nutrition related labs, weights as charted, GI function, and for potential change in nutrition POC 3. Discharge Planning: Oral Diet Suggestion: Regular(subject to change based on organ function and labs at discharge) Nutrition education and materials provided to patient and significant other Handouts Provided: Living Kidney Donor Diet Guide and Heart Healthy Eating with the DASH diet 4. RD will continue to follow per clinical protocol and assess further as needed. Should patient discharge this will act as their discharge recommendations Ledy Long Jazzmine is a 36 y.o. male with PMH notable for HTN who presents for scheduled laparoscopic living donor nephrectomy with Dr. Chavez. Past History Past medical, surgical, family, and social histories have reviewed and are located elsewhere in the medical record. Past Transplant Nutrition History Per Chart Review: Transplant Donor Nutrition Screen completed 07/10/21 Pt reports good appetite prior to admission, no changes to PO intake. No weight changes per chart review. Kidney donor diet education handouts provided. NFPE unremarkable. Pt with clears tray at bedside, reports tolerating them without nausea or discomfort. Diet Order: Current Diet Orders Procedures DIET CLEAR LIQUID Standing Status: Standing Number of Occurrences: 1 Height: 180.3 cm (5' 11), Weight: 93.9 kg (207 lb) Admission/Adult (Dosing) Weight: 93.9 kg (207 lb); IBW- 78.2 kg. Currently @ 120% IBW /c Body mass index is 28.87 kg/m . Wt Readings from Last 10 Encounters: 03/30/22 93.9 kg (207 lb) 03/26/22 94 kg (207 lb 3.2 oz) 07/10/21 91.1 kg (200 lb 13.4 oz) 07/10/21 91.1 kg (200 lb 12.8 oz) 04/05/21 88.5 kg (195 lb) No recent weight changes per chart review. Labs reviewed: (obtained 03/26/22) labs unremarkable. Meds: morphine CIGAR PACKER AND PICKER sodium chloride 0.9% 100 mL/hr at 03/30/22 1117 docusate 200 mg Oral BID heparin 5,000 Units Subcutaneous Q8H naloxone 0.1 mg Intravenous See admin instructions Or naloxone 0.4 mg Intravenous See admin instructions senna 8.6 mg Oral BID GI: tender Enteral access: None BM: [facility] Urine: 675mL 03/30 (today) Skin: Pedro Score: 20 Active Wounds: Wound Incision 03/30/22 0721 Left Flank (0) Wound Incision 03/30/22 0721 Lower Abdomen (0) Edema- None Estimated Nutrition Needs: Based on IBW (78.2kg) Estimated Kcals Needs: 4536-3494 kcals (25-30kcals/kg) Estimated Pro Needs: 94-117g Pro (1.2-1.5g/kg) Estimated Fluid Needs: Per MD Nutrition Focused Physical Exam: Subcutaneous Fat Loss: Orbital: WNL Buccal: WNL Triceps: WNL Fat Overlying Ribs: WNL Muscle Wasting: Temples (temporalis): WNL Clavicles (pectoralis & deltoids): WNL Shoulders (deltoids): WNL Interosseous: WNL Scapula (latissimus dorsi, trapezious, deltoids): WNL Thigh (quadriceps): WNL Calf (gastrocenmius): WNL Potential Micronutrient Deficiencies: n/a Fluid Evaluation: WNL Malnutrition Statement as evidenced by clinical characteristics: Indications of Malnutrition: No malnutrition based on the AND/ASPEN Malnutrition Criteria [address], LD Pager: [phone] Department of Pharmacy Admission Medication Reconciliation Note Patient: Ledy Dover Room/Bed: Room/bed info not found The patient's allergies have been reviewed with Patient, and I have reviewed the patient's home medication list with the following sources Patient recall without prompting. I have also reviewed this list with the pharmacist. All changes to the home medication list have been updated in [facility]. Updated [facility] Med List: N/A Please feel free to contact me with any further questions. Name: Ellyn Balbuena, RPH Phone #: [phone] Date/Time: 03/28/2022 3:14 PM Time Spent: 5 minutes documented in this encounter [facility] 04-01-2022 Hospital course Narrative Discharge Summary Name: Ledy Dover Age: 37 y.o. Birthday: 1985 Admit Date: 03/30/2022 5:10 AM Discharge Date: 04/01/22 Discharge Unit: [address] [place] [address] Admission Information Admitting Physician: Katy Chavez MD, PhD Discharge Information Discharge Physician: Katy Chavez MD, PhD Problem List Active Hospital Problems Diagnosis Kidney donor Resolved Hospital Problems No resolved problems to display. Brief Summary of Hospital Course for Discharge Summary: We recently cared for Ledy Dover. The following is a summary of this hospital course. Please do not hesitate to contact the [facility] at [phone] if you have questions or concerns regarding this patient. Our physicians can be contacted directly by calling [phone] or after hours via the consult line at [phone]. Ledy Dover is a 36 y.o. male who was admitted to electively donate a kidney. He was taken to the operating room on 03/30/2022 where he underwent a hand-assisted laparoscopic donor nephrectomy. He tolerated the procedure well and had no postoperative complications. Ledy Dover was ambulating without difficulty. He incisions were clean, dry and approximated. His bowel and bladder function returned to normal and the patient was discharged home in stable condition. Post surgical follow up will be with the transplant surgeon in 4 to 6 weeks. He will then follow with our nurse practitioner at 6 months, 1 year and 2 years for renal function surveillance. At 6, 12, and 24 months we will obtain serum BUN and creatinine as well as urine protein creatinine ratio. Ledy Dover has been counseled on the avoidance of NSAID medications and a no added salt diet. He has also been counseled to monitor blood pressures and to keep routine appointments with their primary care physician. This patient received a prescription for an opioid pain medication. The risks, benefits, and addiction potential of using this medication have been explained to the patient and he understands the precautions he should take. He also verbalizes understanding that he should also take precautions to prevent others from taking his medicine. Physical Exam: General: No acute distress Neuro: alert and oriented x 3 Cardiovascular: regular rate and rhythm, no murmurs, rubs, gallops Pulmonary: CTAB Abdomen: soft, mildly distended, incision-clean, dry, intact with sahra Extremities: warm and well perfused, 2+dp/pt pulses Skin: no lesions Brief Summary of Consults for Discharge Summary: Brief Summary of Procedures and Imaging for Discharge Summary: Summary of last selected lab results and date obtained: Lab Results Component Value Date WBC 5.79 03/26/2022 HGB 12.9 (L) 2022 HCT 38.0 (L) 2022 PLATELET 298 03/26/2022 MCV 90.3 03/26/2022 Lab Results Component Value Date SODIUM 139 03/26/2022 POTASSIUM 3.9 03/26/2022 CHLORIDE 104 03/26/2022 CO2 27 03/26/2022 BUN 19 2022 CREATSERUM 1.42 (H) 2022 GLUCOSE 85 03/26/2022 Lab Results Component Value Date ALT 25 07/10/2021 AST 25 07/10/2021 GGT 19 07/10/2021 ALKPHOS 82 07/10/2021 BILITOTAL 0.6 07/10/2021 BILIDIRECT 0.1 07/10/2021 Brief Summary of Labs for Discharge Summary: No discharge procedures on file. Current Outpatient Meds: Medication List for when you go home START taking these medications acetaminophen 325 MG tablet Take 2 tablets by mouth every 6 hours as needed for Mild Pain. Commonly known as: TYLENOL docusate 100 MG CAPS Take 2 capsules by mouth 2 times daily. Hold for loose stools Commonly known as: COLACE ondansetron 4 MG ODT tablet Take 1 tablet by mouth every 8 hours as needed for Nausea / Vomiting. Commonly known as: ZOFRAN-ODT oxyCODONE-acetaminophen 5-325 MG per tablet Take 1 tablet by mouth every 6 hours as needed for Moderate Pain (Moderate pain after CIGAR PACKER AND PICKER discontinued) for up to 7 days. Commonly known as: PERCOCET For diagnoses: Kidney donor polyethylene glycol 17 g PACK packet Take 1 packet by mouth daily as needed. Hold for loose stools Commonly known as: MIRALAX sennosides 8.6 MG TABS Take 1 tablet by mouth daily. Hold for loose stools Commonly known as: SENNA simethicone 80 MG CHEW chewable tablet Chew 1 tablet every 6 hours as needed for Gas. Commonly known as: MYLICON Follow-up: No follow-up provider specified. Upcoming Appointments (up to five)-Some appointments for Medical Center outpatient clinics or diagnostic testing locations are not displayed below Provider Department Dept Phone 04/30/2022 8:45 AM Katy Chavez [facility] [phone] Associated attestation - Katy Chavez MD, PhD - 04/01/2022 4:06 PM EST I. Katy Chavez MD, PhD, have independently seen and examined the patient, reviewed the labs, discussed the patient with the fellow/resident and agree with the note. documented in this encounter [facility] 04-01-2022 Reason for referr al (narrative) Specialty Diagnoses / Procedures Referred By Contac t Referred To Contact Cornelia Roman MBBS [address] [place] [address] Referral ID Status Reason Start Date Expiration Date Visits Re quested Visits Authorized * (Routine) Specialty Diagnoses / Procedures Referred By Contac t Referred To Contact Cornelia Roman MBBS [address] [place], [place] [id number] Referral ID Status Reason Start Date Expiration Date Visits Re quested Visits Authorized * Radiology (Routine) - New Request Specialty Diagnoses / Procedures Referred By Contmanpreet t Referred To Contact Procedures [facility] Katy Chavez MD, PhD [address] [place] [address] Referral ID Status Reason Start Date Expiration Date V isits Requested Visits Authorized [id number] New Request 03/30/2022 04/24/2023 1 1 * Surgical (Routine) - New Request Specialty Diagnoses / Procedures Referred By Ralph harris Referred To Contact Diagnoses Kidney donor Procedures DONOR NEPHRECTOMY LIVING DONOR LAPAROSCOPIC Katy Chavez MD, PhD [address] [place] [address] Referral ID Status Reason Start Date Expiration Date V isits Requested Visits Authorized [id number] New Request 03/30/2022 04/24/2023 1 1 [facility]12-11-2022 Note* Plan of Care - Kari Ambrocio RN - 04/01/2022 4:26 AM EST No change from previous assessment. VSS. Pain well controlled with PRN percocet. Passing gas, no BMyet. Good UOP. Resting with call light in reach. Problem: Pain, Acute (Adult) Goal: Identify Related Risk Factors and Signs and Symptoms Description: Related risk factors and signs and symptoms are identified upon initiation of Human Response Clinical Practice Guideline (CPG) Outcome: Ongoing Goal: Acceptable Pain Control/Comfort Level Description: Patient will demonstrate the desired outcomes by discharge/transition of care. Outcome: Ongoing Problem: Pain, Acute (Adult) Intervention: Monitor/Manage Analgesia Flowsheets Taken 03/31/20222208 Pain Management Interventions: medication given, see MAR Taken 03/31/20221919 Bowel Intervention: ambulation promoted privacy promoted adequate fluid intake promoted Intervention: Mutually Develop/Implement Acute Pain Management Plan Flowsheets (Taken 03/31/20221919) Sensory Stimulation Regulation: care clustered Intervention: Support/Optimize Psychosocial Response to Acute Pain Flowsheets (Taken 03/31/20221919) Supportive Measures: active listening utilized decision-making supported Diversional Activities: smartphone Trust Relationship/Rapport: care explained choices provided [facility]12-11-2022 Miscellaneous Notes* Plan of Care - Kari Ambrocio RN - 04/01/2022 4:26 AM EST No change from previous assessment. VSS. Pain well controlled with PRN percocet. Passing gas, no BMyet. Good UOP. Resting with call light in reach. Problem: Pain, Acute (Adult) Goal: Identify Related Risk Factors and Signs and Symptoms Description: Related risk factors and signs and symptoms are identified upon initiation of Human Response Clinical Practice Guideline (CPG) Outcome: Ongoing Goal: Acceptable Pain Control/Comfort Level Description: Patient will demonstrate the desired outcomes by discharge/transition of care. Outcome: Ongoing Problem: Pain, Acute (Adult) Intervention: Monitor/Manage Analgesia Flowsheets Taken 03/31/20222208 Pain Management Interventions: medication given, see MAR Taken 03/31/20221919 Bowel Intervention: ambulation promoted privacy promoted adequate fluid intake promoted Intervention: Mutually Develop/Implement Acute Pain Management Plan Flowsheets (Taken 03/31/20221919) Sensory Stimulation Regulation: care clustered Intervention: Support/Optimize Psychosocial Response to Acute Pain Flowsheets (Taken 03/31/20221919) Supportive Measures: active listening utilized decision-making supported Diversional Activities: smartphone Trust Relationship/Rapport: care explained choices provided * Plan of Care - Kari Ambrocio RN - 2022 4:30 AM EST VSS. Pain well controlled with morphine CIGAR PACKER AND PICKER pump overnight - transitioned to oral percocet. Pt c/o nausea in the evening, resolved with PRN zofran. Not passing gas yet. Ruano to come out later this AM. Resting with call light in reach. Problem: Pain, Acute (Adult) Goal: Identify Related Risk Factors and Signs and Symptoms Description: Related risk factors and signs and symptoms are identified upon initiation of Human Response Clinical Practice Guideline (CPG) Outcome: Ongoing Flowsheets (Taken 2022 426) Related Risk Factors (Acute Pain): surgery patient perception positioning Signs and Symptoms (Acute Pain): nausea/vomiting/anorexia verbalization of pain descriptors Goal: Acceptable Pain Control/Comfort Level Description: Patient will demonstrate the desired outcomes by discharge/transition of care. Outcome: Ongoing Flowsheets (Taken 03/31/2022426) Acceptable Pain Control/Comfort Level: making progress toward outcome Problem: Pain, Acute (Adult) Intervention: Monitor/Manage Analgesia Flowsheets Taken 03/31/2022426 Bowel Intervention: adequate fluid intake promoted diet adjusted privacy promoted Taken 03/31/2022311 Pain Management Interventions: medication given, see MAR Intervention: Mutually Develop/Implement Acute Pain Management Plan Flowsheets (Taken 03/31/2022426) Sensory Stimulation Regulation: care clustered Intervention: Support/Optimize Psychosocial Response to Acute Pain Flowsheets Taken 03/31/2022426 Supportive Measures: active listening utilized decision-making supported Taken 03/30/20222019 Diversional Activities: smartphone television Trust Relationship/Rapport: care explained choices provided * Plan of Care - Joseline Narayan RD - 03/30/2022 2:21 PM EST Discharge Planning/Recommendations and Nutrition Plan of Care: Advance diet as tolerated to least restrictive diet. Will monitor nutrition related labs, weights as charted, GI function, and for potential change in nutrition POC 3. Discharge Planning: Oral Diet Suggestion: Regular(subject to change based on organ function and labs at discharge) Nutrition education and materials provided to patient and significant other Handouts Provided: Living Kidney Donor Diet Guide and Heart Healthy Eating with the DASH diet 4. RD will continue to follow per clinical protocol and assess further as needed. 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] PROCEDURE PERFORMED Procedure(s) (LRB): DONOR NEPHRECTOMY LIVING DONOR LAPAROSCOPIC (Left) PRIMARY CLOSURE Yes INTRAOPERATIVE FINDINGS No significant abnormalities SURGEON Surgeon(s) and Role: * Katy Chavez MD, PhD - Primary ANESTHESIOLOGIST Anesthesiologist: Dewey Mac MD, PhD; Praneeth Merlos MD FNP: Emilia Faith APRN-FNP Purchasing Officer: OREN Noel Aged Or Disabled Care Worker Assisting: Ashish Ferrell MD SURGICAL STAFF Ceo Na: Oleksandr Pickett RN; Rochelle Franklin RN Scrub Person: Tarik Ibrahim Fellow: GUILLERMO Case COMPLICATIONS None ESTIMATED BLOOD LOSS Minimal SPECIMENS No specimen sent * No specimens in log * Katy Chavez MD, PhD March 30, 2022 12:21 PM * Op Note - Katy Chavez MD, PhD - 03/30/2022 9:43 AM EST Operative Report DATE PERFORMED: 03/30/2022 PREOPERATIVE DIAGNOSIS: Healthy kidney donor. POSTOPERATIVE DIAGNOSIS: Healthy kidney donor. PROCEDURE: Laparoscopic left donor nephrectomy. ATTENDING SURGEON: Katy Chavez MD, PhD LABOR ECONOMIST: Jesús Roman ANESTHESIA: General. COMPLICATIONS: None ESTIMATED BLOOD LOSS: MINIMUM DISPOSITION: RECOVERY ROOM IN STABLE CONDITION INDICATIONS: The patient is an otherwise healthy 36-year-old male who has been evaluated medically and socially and deemed to be an acceptable Kidney donor. Patient was admitted electively for procedure DESCRIPTION OF PROCEDURE: Prior to start of the operation, the donor ABO were confirmed compatible, time-out was performed. The patient was placed under general anesthesia and placed in the right lateral decubitus position and padded appropriately. The abdomen was prepped and draped sterilely. The infraumbilical incision approximately 8 cm was made and carried down through soft tissue and fascia. The hand- assisted port was placed under direct visualization and pneumoperitoneum was established. Two left upper quadrant 10 mm trocars were placed. The camera was placed, and the left colon was taken down with cautery. The ureter was identified and encircled. The kidney was then mobilized with a combination of cautery and Harmonic. The gonadal vein was identified and divided between clips close to the renal vein. The adrenal vein and lumbar vein were identified and divided between clip and ligature as well. The upper pole of the kidney was taken down without difficulty. The posterior aspect of the kidney was mobilized. Two renal arteries were identifed and freed up to the aorta with cautery. The patient was given mannitol and Lasix in concert with the recipient operation. The patient was given 3000 units of heparin. The ureter was doubly clipped and then transected. Each renal arteries was then stapled and transected with a DARLENE stapler separately. The left renal vein was then stapled and transected with a DARLENE stapler. Protamine was given. The kidney was removed and taken to the recipient room for implantation. The operative site was inspected carefully and irrigated copiously. The cameras were removed as was the hand assisted port. The infraumbilical incision was closed with a running 0 Maxon. The skin was closed with subcuticular stitches and Dermabond. The patient tolerated the procedure well and was taken to the recovery room in stable condition. I was present for entire procedure. 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] PROCEDURE PERFORMED Procedure(s) (LRB): DONOR NEPHRECTOMY LIVING DONOR LAPAROSCOPIC (Left) PRIMARY CLOSURE Yes INTRAOPERATIVE FINDINGS No significant abnormalities SURGEON Surgeon(s) and Role: * Katy Chavez MD, PhD - Primary ANESTHESIOLOGIST Anesthesiologist: Dewey Mac MD, PhD; Praneeth Merlos MD FNP: Emilia Faith APRN-FNP Purchasing Officer: OREN Noel Aged Or Disabled Care Worker Assisting: Ashish Ferrell MD SURGICAL STAFF Ceo Na: Oleksandr Pickett RN; Rochelle Franklin RN Scrub Person: Tarik Ibrahim Fellow: GUILLERMO Case COMPLICATIONS None ESTIMATED BLOOD LOSS Minimal SPECIMENS No specimen sent * No specimens in log * Katy Chavez MD, PhD March 30, 2022 9:43 AM * Certification - Carol Mckenna APRN-SPANISH SPEAKING NANNY - 03/30/2022 7:16 AM EST I certify that this patient requires inpatient services at this time. I anticipate the expected length of stay will include at least two midnights. Inpatient services are due to the following medicalconcerns donor nephrectomy. Plans for post hospitalization care will be discharge to home. [facility]* Plan of Care - Kari Ambrocio RN - 2022 4:30 AM EST VSS. Pain well controlled with morphine [employer] pump overnight - transitioned to oral percocet. Pt c/o nausea in the evening, resolved with PRN zofran. Not passing gas yet. Ruano to come out later this AM. Resting with call light in reach. Problem: Pain, Acute (Adult) Goal: Identify Related Risk Factors and Signs and Symptoms Description: Related risk factors and signs and symptoms are identified upon initiation of Human Response Clinical Practice Guideline (CPG) Outcome: Ongoing Flowsheets (Taken 03/31/2022426) Related Risk Factors (Acute Pain): surgery patient perception positioning Signs and Symptoms (Acute Pain): nausea/vomiting/anorexia verbalization of pain descriptors Goal: Acceptable Pain Control/Comfort Level Description: Patient will demonstrate the desired outcomes by discharge/transition of care. Outcome: Ongoing Flowsheets (Taken 03/31/2022426) Acceptable Pain Control/Comfort Level: making progress toward outcome Problem: Pain, Acute (Adult) Intervention: Monitor/Manage Analgesia Flowsheets Taken 03/31/2022426 Bowel Intervention: adequate fluid intake promoted diet adjusted privacy promoted Taken 03/31/2022311 Pain Management Interventions: medication given, see MAR Intervention: Mutually Develop/Implement Acute Pain Management Plan Flowsheets (Taken 03/31/2022426) Sensory Stimulation Regulation: care clustered Intervention: Support/Optimize Psychosocial Response to Acute Pain Flowsheets Taken 03/31/2022426 Supportive Measures: active listening utilized decision-making supported Taken 03/30/20222019 Diversional Activities: smartphone television Trust Relationship/Rapport: care explained choices provided [facility]12-09-2022 Note* Plan of Care - Joseline Narayan RD - 03/30/2022 2:21 PM EST Discharge Planning/Recommendations and Nutrition Plan of Care: Advance diet as tolerated to least restrictive diet. Will monitor nutrition related labs, weights as charted, GI function, and for potential change in nutrition POC 3. Discharge Planning: Oral Diet Suggestion: Regular(subject to change based on organ function and labs at discharge) Nutrition education and materials provided to patient and significant other Handouts Provided: Living Kidney Donor Diet Guide and Heart Healthy Eating with the DASH diet 4. RD will continue to follow per clinical protocol and assess further as needed. 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] PROCEDURE PERFORMED Procedure(s) (LRB): DONOR NEPHRECTOMY LIVING DONOR LAPAROSCOPIC (Left) PRIMARY CLOSURE Yes INTRAOPERATIVE FINDINGS No significant abnormalities SURGEON Surgeon(s) and Role: * Katy Chavez MD, PhD - Primary ANESTHESIOLOGIST Anesthesiologist: Dewey Mac MD, PhD; Praneeth Merlos MD FNP: Emilia Faith APRN-FNP Purchasing Officer: OREN Noel Aged Or Disabled Care Worker Assisting: Ashish Ferrell MD SURGICAL STAFF Ceo Na: Oleksandr Pickett RN; Rochelle Franklin RN Scrub Person: Tarik Ibrahim Fellow: GUILLERMO Case COMPLICATIONS None ESTIMATED BLOOD LOSS Minimal SPECIMENS No specimen sent * No specimens in log * Katy Chavez MD, PhD March 30, 2022 12:21 PM [facility] Work Phone: 1(351) 830-433912-09-2022 Note* Op Note - Katy Chavez MD, PhD - 03/30/2022 9:43 AM EST Operative Report DATE PERFORMED: 03/30/2022 PREOPERATIVE DIAGNOSIS: Healthy kidney donor. POSTOPERATIVE DIAGNOSIS: Healthy kidney donor. PROCEDURE: Laparoscopic left donor nephrectomy. ATTENDING SURGEON: Katy Chavez MD, PhD LABOR ECONOMIST: Jesús Roman ANESTHESIA: General. COMPLICATIONS: None ESTIMATED BLOOD LOSS: MINIMUM DISPOSITION: RECOVERY ROOM IN STABLE CONDITION INDICATIONS: The patient is an otherwise healthy 36-year-old male who has been evaluated medically and socially and deemed to be an acceptable Kidney donor. Patient was admitted electively for procedure DESCRIPTION OF PROCEDURE: Prior to start of the operation, the donor ABO were confirmed compatible, time-out was performed. The patient was placed under general anesthesia and placed in the right lateral decubitus position and padded appropriately. The abdomen was prepped and draped sterilely. The infraumbilical incision approximately 8 cm was made and carried down through soft tissue and fascia. The hand- assisted port was placed under direct visualization and pneumoperitoneum was established. Two left upper quadrant 10 mm trocars were placed. The camera was placed, and the left colon was taken down with cautery. The ureter was identified and encircled. The kidney was then mobilized with a combination of cautery and Harmonic. The gonadal vein was identified and divided between clips close to the renal vein. The adrenal vein and lumbar vein were identified and divided between clip and ligature as well. The upper pole of the kidney was taken down without difficulty. The posterior aspect of the kidney was mobilized. Two renal arteries were identifed and freed up to the aorta with cautery. The patient was given mannitol and Lasix in concert with the recipient operation. The patient was given 3000 units of heparin. The ureter was doubly clipped and then transected. Each renal arteries was then stapled and transected with a DARLENE stapler separately. The left renal vein was then stapled and transected with a DARLENE stapler. Protamine was given. The kidney was removed and taken to the recipient room for implantation. The operative site was inspected carefully and irrigated copiously. The cameras were removed as was the hand assisted port. The infraumbilical incision was closed with a running 0 Maxon. The skin was closed with subcuticular stitches and Dermabond. The patient tolerated the procedure well and was taken to the recovery room in stable condition. I was present for entire procedure. 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] PROCEDURE PERFORMED Procedure(s) (LRB): DONOR NEPHRECTOMY LIVING DONOR LAPAROSCOPIC (Left) PRIMARY CLOSURE Yes INTRAOPERATIVE FINDINGS No significant abnormalities SURGEON Surgeon(s) and Role: * Katy Chavez MD, PhD - Primary ANESTHESIOLOGIST Anesthesiologist: Dewey Mac MD, PhD; Praneeth Merlos MD FNP: Emilia Faith APRN-FNP Purchasing Officer: OREN Noel Aged Or Disabled Care Worker Assisting: Ashish Ferrell MD SURGICAL STAFF Ceo Na: Oleksandr Pickett RN; Rochelle Franklin RN Scrub Person: Tarik Ibrahim Fellow: GUILLERMO Case COMPLICATIONS None ESTIMATED BLOOD LOSS Minimal SPECIMENS No specimen sent * No specimens in log * Katy Chavez MD, PhD March 30, 2022 9:43 AM [facility]12-09-2022 Note* Certification - Carol Mckenna APRN-SPANISH SPEAKING NANNY - 03/30/2022 7:16 AM EST I certify that this patient requires inpatient services at this time. I anticipate the expected length of stay will include at least two midnights. Inpatient services are due to the following medicalconcerns donor nephrectomy. Plans for post hospitalization care [facility]: 1(167) 718-654012-09-2022 Hospital Discharge instructions* Discharge Instructions* Dee Lagos, FEED HOUSE SUPERVISOR-SPANISH SPEAKING NANNY - 03/30/2022 6:36 AM EST TO CONTACT US: To reach a Coordinator: Call the PreTransplant Office [phone] (8:00am -4:00pm) After hours call the PreTransplant Call ACTIVITY - No driving for 1-[address] if you are taking narcotic pain medication. - No lifting, pulling or pushing over 5-10 pounds until your post-operative exam. A gallon of milk weighs about 8 pounds. - Wear an abdominal binder while up and moving for next 2 weeks - Activity as tolerated. Walking is good exercise and is appropriate as tolerated. - May resume sexual activity INCISION CARE - Covering your incision will be white strips called steri-strips. If you do not have steri-strips you will have dermabond (a glue) closing your incision. - Your steri strips should remain dry and in place for 7-10 days after your surgery date. - If your steri strips begin to loosen and curl, you may trim them. - Do not soak your incision or take a tub bath until your incision is healed (approximately 6-8 weeks You may allow water to run over your incision during your daily shower, but do not scrub the incision. Gently pat dry. - Do not put creams, lotions, or ointments on your incision. DONOR GUIDELINES - Check blood pressure every few months and seek prompt evaluation if your blood pressure is consistently greater than 140/85 mmHg - Whenever you seek medical care, always let your healthcare provider know that you have one kidney. - Make sure you see your donor team for checkups at 4-6 weeks post operatively, 6 months, 1 year and 2 years post donation. Lab tests for kidney function will be completed at each time interval. - You should also have an annual exam with your primary care physician to have your urine checked for protein and to have your blood drawn to check your kidney function. -Eat plenty of fruits, vegetables, juices, and drink 2 liters of fluid daily (mostly water) - If you are prescribed any medications, you should let your health care provider know that you have only one kidney. This may effect the dose you are prescribed. - DO NOT use any NSAIDS (non-steroidal anti-inflammatory drugs). Examples are ibuprofen (Advil, Motrin), Aleve and Naprosyn. It is safer for your kidney to use acetaminophen (Tylenol) for pain. Contact your coordinator if you have the following symptoms FEVER/CHILLS/FLU - Temperature greater than 101 degrees F and/or chills/ or body aches. SYMPTOMS OF WOUND INFECTION - Increase in pain in or around wound - Change in the amount of drainage - Change in the color of drainage - Change in the odor of drainage - Warmth in the tissues around the wound - Red streaks on the skin near the wound - Fever (temperature greater than 100.5 degrees F) - Incision separates or opens up NAUSEA VOMITING - Nausea and vomiting that continues for more than 24 hours - Not able to keep medicine down - Not able to keep fluids down CONSTIPATION - If you have not had a bowel movement 3 days after your discharge. PAIN MEDICATION You have been given a prescription containing oxycodone or hydrocodone. This is an opioid pain medication. It can be helpful in controlling pain after your surgery. Use this medication sparingly. If you continue to have discomfort and you have taken all of your prescription, you can use acetaminophen (Tylenol) 325-650mg every six hours. Side effects of opioid pain medicine: Dizziness Light-headedness Feeling faint Sleepiness Nausea or vomiting Constipation You must not drink alcohol with this medicine. If you take this medication and drink alcohol, it can slow down your breathing, or stop it altogether. When you take this medicine, you should not drive. If you are driving and are stopped while on this medicine, you may be charged with a DUI. You should not run machinery or other heavy equipment. You may have difficulty thinking clearly, or you may not be able to respond quickly when taking this medicine, which could place you, or others around you, in danger. This medication can be addictive. Usually, patients do not become addicted to this medication if used as prescribed and if taken for a short period of time. However, people respond to medications in different ways and it is importantto know that there are risks. Store this medicine in a locked cabinet, drawer or lock box. Because of its potential for addiction and misuse, this medication should be kept away from anyone for whom it is not prescribed. Do not share this medication with anyone. Find a place that you can lock to keep it away from children, teens and young adults. Dispose of this medication properly if you no longer have the need and have leftover tablets. Extra tablets can be flushed, or turned in to specific locations. See link for more information: http://rxdrugdropbox.org/ Potential serious long-term effects If you chose to continue with this drug or get additional prescriptions from other clinicians you run the risk of addiction, increased pain, inability to perform sexually, serious health problems, and . * Attachments The following attachments cannot be sent through Care Everywhere. * Living Kidney Donor Diet Guide ([facility]) ([place]) * Diet: DASH ([place]sh) documented in this [facility]12-09-2022 History and physical note* Angel Burdick MD - 03/30/2022 5:38 AM EST Transplant Surgery Admission Note Patient: Ledy Dover Date: 03/30/2022 5:38 AM Reason for Admission: Scheduled Laparoscopic Living Donor Nephrectomy HPI: Ledy Dover is a 36 y.o. male with PMH notable for HTN who presents for scheduled laparoscopic living donor nephrectomy with Dr. Chavez. He last saw Dr. Chavez in clinic on 07/10/21. Patient notes nochanges to his health since that time. Patient notes recent emergency department visits, no recent illnesses, and no exposure to COVID-19.He has been compliant with pre-op testing. He has had no cough, fever, chills, headache, chest pain, nausea, vomiting, abdominal pain, constipation, or diarrhea at this time. The patient is not anticoagulated. The patient is not on steroids or chemotherapy. REVIEW OF SYSTEMS: (all positives in bold, otherwise negative) GENERAL: fever, chills, weight loss, fatigue, night sweats EYES: blurry vision, eye pain HENT: headache, hearing loss, sore throat, dysphagia, sinus pain CARDIO: chest pain, palpitations, orthopnea PULM: shortness of breath, wheezing, cough, sputum, hemoptysis GI: nausea, vomiting, diarrhea, abdominal pain, blood in stool : urinary frequency, urgency, dysuria, urethral discharge MSK: joint pain, back pain, swelling SKIN: rash, redness HEME: easy bruising, bleeding Medical History PAST MEDICAL/SURGICAL HISTORY has no past medical history on file. has a past surgical history that includes ankle surgery (Right). MEDS No current outpatient medications FAMILY HISTORY His family history includes Hypertension in his father. SOCIAL HISTORY reports that he has never smoked. He has never used smokeless tobacco. He reports that he does not currently use alcohol. No history on file for drug use. ALLERGIES Patient has no known allergies. Vitals/Physical Exam VITALS: Temp: [97.7 F (36.5 C)] 97.7 F (36.5 C) Pulse (Heart Rate): [74] 74 Resp Rate: [18] 18 BP: (145)/(93) 145/93 O2 Sat (%): [99 %] 99 % Weight: [93.9 kg (207 lb)] 93.9 kg (207 lb) O2 Sat (%): 99 % (03/30 534) O2 Device: room air (03/30 534) PHYSICAL EXAM Constitutional: No acute distress. HEENT: Head normocephalic, atraumatic. Cardiovascular: Regular rate and rhythm. Pulmonary/Chest: Unlabored breathing on room air. Abdomen: Soft, non-distended, non-tender. Extremities: Moving all extremities equally and purposefully. Neurological: Alert, oriented. No gross deficits. Skin: No rash noted. Psychiatric: Mood, affect, and memory normal. Labs/Imaging LABS: No results for input(s): WBC, HGB, PLATELET, CREATSERUM, INR, LACT, CRP in the last 72 hours. No results for input(s): SODIUM, POTASSIUM, CHLORIDE, CO2, BUN, CREATSERUM, MAGNESIUM, PHOSPHORUS in the last 72 hours. No results for input(s): PT, PTT, INR in the last 72 hours. No results for input(s): AST, ALT, BILITOTAL, BILIDIRECT, TOTALPROTEIN, ALB, ALBUMIN, ALBUMINALB, ALBUMINFLD, ALBUMINCSF, ALBUMINSERUM, ALKPHOS, PREALBUMIN in the last 72 hours. Assessment/Plan Ledy Dover is a 36 y.o. male with PMHx of HTN who presents for scheduled kidney donor nephrectomy. - NPO, IVF - Routine pre-op labs - Proceed to OR as planned - Med/surg The plan was discussed with transplant fellow/attending. Angel Burdick MD Department of General Surgery Associated attestation - Katy Chavez MD, PhD - 03/30/2022 12:26 PM EST Lashae. Katy Chavez MD, PhD, have independently seen and examined the patient, reviewed the labs, discussed the patient with the fellow/resident and agree with the note. [facility] History and physical note* Angel Burdick MD - 03/30/2022 5:38 AM EST Transplant Surgery Admission Note Patient: Ledy Dover Date: 03/30/2022 5:38 AM Reason for Admission: Scheduled Laparoscopic Living Donor Nephrectomy HPI: Ledy Dover is a 36 y.o. male with PMH notable for HTN who presents for scheduled laparoscopic living donor nephrectomy with Dr. Chavez. He last saw Dr. Chavez in clinic on 07/10/21. Patient notes nochanges to his health since that time. Patient notes recent emergency department visits, no recent illnesses, and no exposure to COVID-19.He has been compliant with pre-op testing. He has had no cough, fever, chills, headache, chest pain, nausea, vomiting, abdominal pain, constipation, or diarrhea at this time. The patient is not anticoagulated. The patient is not on steroids or chemotherapy. REVIEW OF SYSTEMS: (all positives in bold, otherwise negative) GENERAL: fever, chills, weight loss, fatigue, night sweats EYES: blurry vision, eye pain HENT: headache, hearing loss, sore throat, dysphagia, sinus pain CARDIO: chest pain, palpitations, orthopnea PULM: shortness of breath, wheezing, cough, sputum, hemoptysis GI: nausea, vomiting, diarrhea, abdominal pain, blood in stool : urinary frequency, urgency, dysuria, urethral discharge MSK: joint pain, back pain, swelling SKIN: rash, redness HEME: easy bruising, bleeding Medical History PAST MEDICAL/SURGICAL HISTORY has no past medical history on file. has a past surgical history that includes ankle surgery (Right). MEDS No current outpatient medications FAMILY HISTORY His family history includes Hypertension in his father. SOCIAL HISTORY reports that he has never smoked. He has never used smokeless tobacco. He reports that he does not currently use alcohol. No history on file for drug use. ALLERGIES Patient has no known allergies. Vitals/Physical Exam VITALS: Temp: [97.7 F (36.5 C)] 97.7 F (36.5 C) Pulse (Heart Rate): [74] 74 Resp Rate: [18] 18 BP: (145)/(93) 145/93 O2 Sat (%): [99 %] 99 % Weight: [93.9 kg (207 lb)] 93.9 kg (207 lb) O2 Sat (%): 99 % (03/30 534) O2 Device: room air (03/30 534) PHYSICAL EXAM Constitutional: No acute distress. HEENT: Head normocephalic, atraumatic. Cardiovascular: Regular rate and rhythm. Pulmonary/Chest: Unlabored breathing on room air. Abdomen: Soft, non-distended, non-tender. Extremities: Moving all extremities equally and purposefully. Neurological: Alert, oriented. No gross deficits. Skin: No rash noted. Psychiatric: Mood, affect, and memory normal. Labs/Imaging LABS: No results for input(s): WBC, HGB, PLATELET, CREATSERUM, INR, LACT, CRP in the last 72 hours. No results for input(s): SODIUM, POTASSIUM, CHLORIDE, CO2, BUN, CREATSERUM, MAGNESIUM, PHOSPHORUS in the last 72 hours. No results for input(s): PT, PTT, INR in the last 72 hours. No results for input(s): AST, ALT, BILITOTAL, BILIDIRECT, TOTALPROTEIN, ALB, ALBUMIN, ALBUMINALB, ALBUMINFLD, ALBUMINCSF, ALBUMINSERUM, ALKPHOS, PREALBUMIN in the last 72 hours. Assessment/Plan Ledy Dover is a 36 y.o. male with PMHx of HTN who presents for scheduled kidney donor nephrectomy. - NPO, IVF - Routine pre-op labs - Proceed to OR as planned - Med/surg The plan was discussed with transplant fellow/attending. Angel Burdick MD Department of General Surgery Associated attestation - Katy Chavez MD, PhD - 03/30/2022 12:26 PM EST I. Katy Chavez MD, PhD, have independently seen and examined the patient, reviewed the labs, discussed the patient with the fellow/resident and agree with the note. [facility] History of Present illness Narrative* Dara Lujan RN - 03/26/2022 9:30 AM EST Ledy Dover attended pre-op donor education session, including pre-op labs, EKG and CXR. Patientwas provided written and verbal education regarding admission date/time/location, pre-op and surgery procedures, post-op hospital stay, discharge and post donation care. Reviewed current [facility] visitation policy. Reinforced required post donation follow-up schedule, patient verbalized acceptance. Discussed with the patient his BP today and 24 HR ABPM and potential future risks. The patient and his stated they were aware and the patient is still okay with proceeding with donation surgery. Stressed donor educational points: * Avoid lifting, pushing, pulling > 5lbs, strenuous activity and exercise for 4- 6 weeks post donation * Most people live normal, healthy lives with one kidney. However, it's important to stay as healthy as possible, and protect the only kidney you have * Lifelong avoidance of NSAIDS ( Motrin, Ibuprofen, Advil, Aleve, Naprosyn and certain arthritis medications) * It is OK to use Tylenol and occasional Aspirin * Seek prompt treatment of UTI or kidney stone symptoms ( painful urination, inability to pass urine, pelvic pain, pain in mid back on side of remaining kidney, urine that does not look or smell normal, bloody or dark urine) * Check blood pressure every few months and seek prompt evaluation if your blood pressure is greater than 140/85 mmHg * Drink at least 2 liters of fluid daily ( mostly water ) * You will preserve 75% of you pre donation renal function. You will run a slightly higher creatinine reaching a new baseline between 1-2 years post donation * Make sure you see you complete donor follow up at 4-6 weeks, 6 months, 1 yr and 2 yrs post donation Ledy Dover has reviewed and signed Donation during COVID-19 informed consent and has no furtherquestions or concerns and wishes to proceed. Donor notified that The [facility] Transplant program is required to obtain a living donor blood specimen at surgery to store the specimen for 10 years, only to be used for investigation of potential donor-derived disease. * CONNOR Magallanes - 03/26/2022 9:30 AM EST ERIN met with this 36 y.o. male who is scheduled to be a kidney donor to his xosrcw-iv-wld on 03/30/2022. [employer] pt lived with his of 8 years and their 4 mo son and was independent in his activities of daily living. Pt did not receive any outside services and did not use any durable medical equipment. Pt was open with his emotions and appears to be coping adequately. ERIN provided emotional support. Pt denied having any current depression or anxiety. ERIN stressed to pt that anxiety and depression are common after donation. ERIN encouraged pt to call this LDA if he feels that he is experiencing any depression and or anxiety after surgery. ERIN also informed pt that a transplant psychologist is available to pt if wanted. Pt voiced his understanding. Pt stated that he feels that his family and friends have been supportive of his decision to donate. Pt stated his will be able to assist him upon discharge. Pt was recently lost his job. Pt has an interview for a new position later this week. Pt denied that donating would cause him a financial hardship. ERIN explained the medical out topt and offered it to him. Pt verbalized his understanding and declined it stating that he is committed to the donation process. ERIN reviewed health care power of deputy commonwealth's attorney (HCPOA) information with pt and provided him with the documents, which he declined stating that he has completed the forms. Pt was encouraged to bring his HCPOA in when he is admitted. Patient expressed an understanding. LDA reminded pt to fill his prescriptions at the [facility] upon discharge and they will be covered in full for him. ERIN discussed and stressed to pt the personal benefit, need and importance of completingthe donor follow-up, the first being 4-6 weeks post donation, then at 6 months, one year and two years post donation. Pt verbalized his understanding. Pt did not identify any additional needs. Pt verb alized that he has this LDA s contact information. ERIN encouraged pt to call with any needs. documented in this encounterWV[facility] Instructions* Patient Instructions* Dara Lujan RN - 03/26/2022 9:30 AM EST Images from the original note were not included. You will need to complete additional testing today. When your visit is complete please take the elevator to the second floor, turn right and follow the hallway to the end for radiology. You will havea chest x-ray completed. Once that is complete your appointment today is finished. Planning for Surgery: Discontinue the following medications at least 2 weeks prior to your scheduled surgery: -oral control and / or hormone replacement pills or patches -aspirin and NSAIDS -herbal supplements It is recommended to discontinue tobacco and alcohol use at least 2 weeks prior to surgery. Reminders for surgery day: - Nothing by mouth after midnight - Shower with surgical soap the night before and morning of surgery - Take medications with small amount water - Bring photo ID, medication list and loose, comfortable clothing for discharge - [facility] ([facility], [address]) Donor Education: * Most people live normal, healthy lives with one kidney. However, it's important to stay as healthy as possible, and protect the only kidney you have * Lifelong avoidance of NSAIDS ( Motrin, Ibuprofen, Advil, Aleve, Naprosyn and certain arthritis medications) * It is OK to use Tylenol and occasional Asprin * Seek prompt treatment of UTI or kidney stone symptoms ( painful urination, inability to pass urine, pelvic pain, pain in mid back on side of remaining kidney, urine that does not look or smell normal, bloody or dark urine) * Check blood pressure every few months and seek prompt evaluation if your blood pressure is greater than 140/85 mmHg * Drink at least 2 liters of fluid daily ( mostly water ) * You will preserve 75% of you pre donation renal function. You will run a slightly higher creatinine reaching a new baseline between 1-2 years post donation * Make sure you see your PCP annually and have a Blood Creatinine and Urine test for protein each year ( We will obtain these at your 6, 12 and 24 month post donation visit ) .........what living donors have in common is that they stepped up to help others live better lives...family, friends, even total strangers. Thank you for your amazing gift!!! Instructions After COVID-19 Test Before Your Procedure Isolate yourself from others You were tested for COVID-19 today to protect you, our staff and other patients before your procedure or surgery. It may take up to 72 hours to get your results. Until you have your procedure, limit your contact with other people to prevent possible exposure tothe virus. Follow these instructions to protect yourself until you have your procedure. Stay home until you need to go to your procedure or surgery: Do not leave your home unless you need urgent medical care and be sure to wear a face mask and washyour hands. Other routine medical and dental care should be scheduled after your procedure. You cango into your yard, but you should not have any visitors. Household members should also use caution: They need to use extra caution to keep at least 6 to 10 feet away from others, wear a face mask, and practice good hand washing any time they leave home. They should avoid traveling, larger groups of people, restaurants and bars. Precautions you need to take until your procedure is done if any household member is going out: Keep at least 6 to 10 feet away from others in your home. Don't sleep or spend time in the same room with others. Use a different bathroom, if possible. Wear a face mask when others are around, and have them wear face masks also. If you require close contact for help, your caregiver should wear a face mask and gloves whenever handling any bodily fluids. Do not share bedding, towels, dishes, utensils or drinking containers. Wash dishes in hot water or use a lace mender. Protect yourself and others Wash your hands well and often with soap and water. Wet your hands with clean water and apply soap. Rub the soap on your hands to get a bubbly lather. Scrub the lather over the backs and fronts of your hands and fingers, between your fingers, and under your nails for at least 20 seconds. Rinse your hands with water and dry them with a clean towel. Use an alcohol-based hand bond trader that contains at least 60% alcohol if soap and water are not available. Be sure to wash your hands: After blowing your nose, sneezing or coughing After using the bathroom Before eating or preparing food Before touching anyone else in the house Anyone helping with your care should also be washing their hands well. Be sure to wash before and after providing any care or having any contact with trash, laundry or utensils. Clean and disinfect high-touch surfaces in your household at least every day. This includes door knobs, tables, countertops, light switches, handles, keyboards, phones, remotes, touch screens, toilets, faucets and sinks. Most household disinfectants should be effective, such as Lysol, Clorox or similar store-brand products. Follow the instructions on the container. You can also use a diluted bleach solution to disinfect surfaces. Be sure to leave it on for at least one minute and allow for good ventilation in the area during and after use. Check that the bleachis not . Mix 5 tablespoons or ? cup of bleach in a gallon of water, or 4 teaspoons of bleachin 1 quart of water. Watch for signs Contact your doctor or the procedure site right away if you have any signs of illness such as: Cough Fever Chills Headache Sore throat Muscle or body aches Loss of smell or taste Nausea Diarrhea Vomiting Pain Shortness of breath or trouble breathing Traveling to procedure Have a responsible adult drive you to your procedure and back home after. Both you and the caterpillar driver should wear face masks. Sit in the back seat on the passenger side, so there is as much distance between you as possible. Please avoid the use of public transportation, including the bus, taxi or Uber for example. Laparoscopic Nephrectomy: Before Your Surgery What is laparoscopic nephrectomy? A nephrectomy is surgery to take out part or all of the kidney. One or both kidneys may be taken out. Sometimes other tissue near the kidney is taken out at the same time. The doctor will put special tools and a thin, lighted tube called a laparoscope through several small cuts in your belly. These cuts are called incisions. Then the doctor will remove your kidney through one of the incisions. The incisions will leave scars that will fade with time. Your body can work fine with one healthy kidney. But if both kidneys are removed, or if the kidney you have left is not healthy, you will need other treatment after surgery. Your doctor will talk to you about this. You will probably spend 3 or 4 days in the hospital. You will need to take it easy for 4 to 6 weeksat home. Follow-up care is a hendricks part of your treatment and safety. Be sure to make and go to all appointments, and call your doctor if you are having problems. It's also a good idea to know your test resultsand keep a list of the medicines you take. How do you prepare for surgery? Surgery can be stressful. This information will help you understand what you can expect. And it will help you safely prepare for surgery. Preparing for surgery You may need to empty your bowels with a laxative or an enema. Your doctor will tell you if you need to do this. Be sure you have someone to take you home. Anesthesia and pain medicine will make it unsafe for youto drive or get home on your own. Understand exactly what surgery is planned, along with the risks, benefits, and other options. If you take aspirin or some other blood thinner, ask your doctor if you should stop taking it before your surgery. Make sure that you understand exactly what your doctor wants you to do. These medicines increase the risk of bleeding. Tell your doctor ALL the medicines, vitamins, supplements, and herbal remedies you take. Some may increase the risk of problems during your surgery. Your doctor will tell you if you should stop taking any of them before the surgery and how soon to do it. Make sure your doctor and the hospital have a copy of your advance directive. If you don't have one, you may want to prepare one. It lets others know your health care wishes. It's a good thing to have before any type of surgery or procedure. What happens on the day of surgery? Follow the instructions exactly about when to stop eating and drinking. If you don't, your surgery may be canceled. If your doctor told you to take your medicines on the day of surgery, take them with only a sip of water. Take a bath or shower before you come in for your surgery. Do not apply lotions, perfumes, deodorants, or nail wallisian. Do not shave the surgical site yourself. Take off all jewelry and piercings. And take out contact lenses, if you wear them. At the hospital or surgery center Bring a picture ID. The area for surgery is often marked to make sure there are no errors. You will be kept comfortable and safe by your anesthesia provider. You will be asleep during the surgery. You may get an epidural catheter. This is a small tube that puts pain medicine into the area in your back around your spinal cord. It helps prevent pain after surgery. The surgery will take about 2 to 4 hours. You will have a tube that drains urine from your bladder. This is called a urinary catheter. You may have a small tube coming out of your belly. This tube will drain fluids. You may have a thin plastic tube in your nose that goes down the back of your throat into your stomach. It will drain stomach juices. It is usually removed in the days after surgery. When should you call your doctor? You have questions or concerns. You don't understand how to prepare for your surgery. You become ill before the surgery (such as fever, flu, or a cold). You need to reschedule or have changed your mind about having the surgery. Where can you learn more? Go to http://www.[employer].edu/patiented. Enter A490 in the search box to learn more about 'Laparoscopic Nephrectomy: Before Your Surgery.' Interested in seeing a video go to [email or web address]/videolibrary to see all video content. Current as of: August 05, 2019 Content Version: 12.6 [employer]. Care instructions adapted under license by your healthcare professional. If you have questions about a medical condition or this instruction, always ask your healthcare professional. [employer] disclaims any warranty or liability for your use of this information. Laparoscopic Nephrectomy: What to Expect at Home Your Recovery A nephrectomy is surgery to take out part or all of the kidney. One or both kidneys may be taken out. Sometimes other tissue near the kidney is taken out at the same time. Your belly will feel sore after the surgery. This usually lasts about 1 to 2 weeks. Your doctor will give you pain medicine for this. You may also have other symptoms such as nausea, diarrhea, constipation, gas, or a headache. At first, you may have low energy and get tired quickly. It may take 3 to 6 months for your energy to fully return. Your body can work fine with one healthy kidney. If both kidneys are removed or your remaining kidney is not healthy, your doctor will talk to you about the kind of treatment you will need after surgery. This care sheet gives you a general idea about how long it will take for you to recover. But each person recovers at a different pace. Follow the steps below to get better as quickly as possible. How can you care for yourself at home? Activity Rest when you feel tired. Getting enough sleep will help you recover. Try to walk each day. Start by walking a little more than you did the day before. Bit by bit, increase the amount you walk. Walking boosts blood flow and helps prevent pneumonia and constipation. Avoid exercises that use your belly muscles and strenuous activities such as bicycle riding, jogging, weight lifting, or aerobic exercise until your doctor says it is okay. For at least 4 weeks, avoid lifting anything that would make you strain. This may include a child, heavy grocery bags and milk containers, a heavy briefcase or backpack, cat litter or dog food bags, or a vacuum frame cleaner. Hold a pillow over the cuts the doctor made (incisions) when you cough or take deep breaths. This will support your belly and decrease your pain. Do breathing exercises at home as instructed by your doctor. This will help prevent pneumonia. Ask your doctor when you can drive again. You will probably need to take 4 to 6 weeks off from work. It depends on the type of work you do and how you feel. You may be able to take showers (unless you have a drainage tube near your incisions). If you have a drainage tube, follow your doctor's instructions to empty and care for it. Do not take a bath for the first 2 weeks, or until your doctor tells you it is okay. Ask your doctor when it is okay for you to have sex. Diet You can eat your normal diet. If you were on a special diet for your kidneys before surgery, followthat diet until your doctor tells you to stop. If your stomach is upset, try bland, low-fat foods like plain rice, broiled chicken, toast, and yogurt. Drink plenty of fluids (unless your doctor tells you not to). You may notice that your bowel movements are not regular right after your surgery. This is common. Try to avoid constipation and straining with bowel movements. You may want to take a fiber supplement every day. If you have not had a bowel movement after a couple of days, ask your doctor about taking a mild laxative. Medicines Your doctor will tell you if and when you can restart your medicines. He or she will also give you instructions about taking any new medicines. If you take aspirin or some other blood thinner, ask your doctor if and when to start taking it again. Make sure that you understand exactly what your doctor wants you to do. Take pain medicines exactly as directed. If the doctor gave you a prescription medicine for pain, take it as prescribed. If you are not taking a prescription pain medicine, take an yend-uno-unaxcab medicine that your doctor recommends. Read and follow all instructions on the label. Do not take aspirin, ibuprofen (Advil, Motrin), or naproxen (Aleve), or other nonsteroidal anti-inflammatory drugs (NSAIDs) unless your doctor says it is okay. If you think your pain medicine is making you sick to your stomach: Take your medicine after meals (unless your doctor has told you not to). Ask your doctor for a different pain medicine. If your doctor prescribed antibiotics, take them as directed. Do not stop taking them just because you feel better. You need to take the full course of antibiotics. Incision care If you have strips of tape on the incisions, leave the tape on for a week or until it falls off. Wash the area around the incisions daily with warm, soapy water and pat it dry. Don't use hydrogen peroxide or alcohol, which can slow healing. You may cover the incisions with gauze bandages if theyweep or rub against clothing. Change the bandages every day. Keep the area around the incisions clean and dry. Follow-up care is a hendricks part of your treatment and safety. Be sure to make and go to all appointments, and call your doctor if you are having problems. It's also a good idea to know your test resultsand keep a list of the medicines you take. When should you call for help? Call 911 anytime you think you may need emergency care. For example, call if: You passed out (lost consciousness). You have chest pain, are short of breath, or cough up blood. Call your doctor now or seek immediate medical care if: You have pain that does not get better after you take your pain medicine. You have symptoms of a urinary tract infection. These may include: Pain or burning when you urinate. A frequent need to urinate without being able to pass much urine. Pain in the flank, which is just below the rib cage and above the waist on either side of the back. Blood in the urine. A fever. You have signs of infection, such as: Increased pain, swelling, warmth, or redness. Red streaks leading from the incisions. Pus draining from the incisions. A fever. You have loose stitches, or your incisions come open. You are bleeding from the incisions. You cannot urinate. You are sick to your stomach or cannot drink fluids. You have signs of a blood clot in your leg (called a deep vein thrombosis), such as: Pain in the calf, back of the knee, thigh, or groin. Redness and swelling in your leg. Watch closely for changes in your health, and be sure to contact your doctor if you are having any problems. Where can you learn more? Go to http://www.[employer].[email or web address].edu/patiented. Enter L270 in the search box to learn more about 'Laparoscopic Nephrectomy: What to Expect at Home.' Interested in seeing a video go to [email or web address].[facility].edu/videolibrary to see all video content. Current as of: August 05, 2019 Content Version: 12.6 [employer]. Care instructions adapted under license by your healthcare professional. If you have questions about a medical condition or this instruction, always ask your healthcare professional. [employer] disclaims any warranty or liability for your use of this information. documented in this encounterOS[facility] History of Present illness Narrative* Katy Chavez MD, PhD - 07/10/2021 7:30 AM EDT Ledy Dover was examined for surgical evaluation as a living kidney donor to father in law. I discussed risks and benefits of laparoscopic donor nephrectomy. Potential donor understands and wishesto proceed. All questions answered to donor's satisfaction. Previous abdominal surgeries: none BMI: 27.2 Additional comments: Abdomen: normal * Sarah Carpenter, MACHINING AND ASSEMBLY SUPERVISOR - 07/10/2021 7:30 AM EDT LIVING DONOR ADVOCATE ASSESSMENT smooth and burr worker composites requested as Living Donor Advocate for patient who is a potential kidney donor. The potential recipient is his tytacr-lp-wye. This delinquency prevention social worker met with patient and discussed his motivations, concerns and understanding of the donation process. TRUE Patient has reviewed the surgical consent form and has had his questions answered to his satisfaction. LDA comments: Patient acknowledged receiving the surgical consent form today and reviewing it. Patient has received detailed information from the LDA about 6,12 and 24 month follow-up requirements, including the benefits of the follow-up and the importance of participating in the follow-up process to ensure the donor receives the best care possible. Patient did not identify any questions or concerns. TRUE Patient understands the surgical procedure of kidney donation. LDA comments: Patient stated that he feels that he has a better understanding of the surgery after attending the teaching session today. Patient learned about the psychosocial evaluation requirementsand medical evaluation requirements. Patient did not identify any additional questions. TRUE Patient understands that the evaluation process includes both a psychosocial evaluation and medical evaluation and he various components involved in these evaluations. LDA comments: none TRUE Patient understands the risks, complications and side-effects associated with kidney donation. LDA comments: Patient is also aware of the risk for depression, anxiety and/or PTSD post donation. Patient was informed that there are transplant psychologist, in addition to this LDA, that are available, if needed. Patient did not identify any concerns. TRUE Patient denies feeling any pressure or compulsion to donate his kidney. LDA comments: Patient stated that he volunteered to donate to his extlsk-zr-crs. Pt stated that fncjxzkst-ip-beb has dealt with kidney failure since pt started dating his daughter 12 years ago. Pt'swife wanted to donate, but is unable to do so because she is with their first child. Patient denied feeling any pressure to donate. TRUE Patient denies any financial compensation from the recipient for this kidney donation. Patienthas been educated by LDA and acknowledges and understands that it is a federal crime for any personknowingly acquire, obtain or otherwise transfer any human organ or anything of value, including, but not limited to, molina, property and vacations. LDA comments: none TRUE Patient denies any secondary gain from his kidney donation. LDA comments: none TRUE Patient understands his medical records are confidential and will not be shared with the recipient. LDA comments: none TRUE Patient understands he has a right to withdraw from the donor program at any time prior to surgery without repercussions LDA comments: LDA explained medical out to patient. Patient declined stating that he is committed to the donation process. Patient verbalized his understanding. LDA provided patient with contact information and encouraged him to call with any needs. TRUE None of the patient s comments or questions during the interview generated any concerns regarding his mental capacity. LDA comments: Patient reports being treated for depression through medication over two years ago. Pt feels that his depression was situational. Pt was in the [employer] at that time and did not like his job. Pt's had moved back with her parents in order to help her dad. Pt feels that his symptoms are currently well managed. Patient denied having any learning challenges. Patient answered all questions appropriately. TRUE Patient has identified a support person(s) to help him during recovery. LDA comments: Patient stated he lives with his of 8 years. Pt's is with their first child and is due mid-October. Patient stated that he feels that his family and friends have been supportive of his decision to donate. Patient stated that depending on when he donates, his , siste r-in-law and mom would be able to assist him. Pt's works at a [employer]. She has been workingPT since becoming and does not plan on returning to work after she has the baby. Pt's wifeattended the donor education with pt. LDA met with pt separately from his support person. Patient states he is motivated to donate his kidney because: he wants to see his vcschi-lv-anq feelbetter and avoid dialysis. Patient expressed these concerns: Pt is hoping to donate soon, so he can be recovered for the birthof his child. Pt works in construction for [employer]. Pt plans to talk to his employerto see how much paid leave he would be eligible for. The company that pt works for is small and he is unsure if he would be eligible for FMLA. Pt has informed his employer about his desire to donate and feels that they are willing to work with him during his recovery. Pt stated that he would be able to do non-construction jobs during his recovery so he would not have to take as much time off. LDAdicussed the [facility] assistance program and was given the application. Pt stated that he receives a disability payment from the [employer] in addition to his current job. Pt does not feel that donating would cause him a financial hardship. Living Donor Advocate concerns: LDA did not identify any concerns and supports this patient s decision to donate. * CONNOR Devine - 07/10/2021 7:30 AM EDT Transplant Donor Psychosocial Evaluation Demographics: Patient is a 36 y.o., White, male who presented for a Kidney donor transplant evaluation. Patient completed evaluation with his spouse Sendy, to whom he has been for 8 years. Patient was AOx4. The [facility] psychosocial assessment consent form has been signed and this delinquency prevention social worker informed patient confidentiality. Patient does demonstrate the ability to make informed decisions. smooth and burr worker composites educated patient on the benefits of having advanced directives. Patient identifies with YAZDANISM adventist. Patient confirms being a [place] Citizen. Patient's preferred language is Welsh. Patient identifies as an PRIETO donor and his relationship to recipient is son-in-law. Education: Patient's highest level of education is some graduate school. He denies a history of developmental delay or learning disabilities. Patient is literate. Patient denies recent changes to memory, concentration, or attention. Functional Status: Patient's current transportation is independent/drives as he has his own vehicle and a valid license. Patient identifies additional access to transportation through his spouse Sendy, his parents, hisin-laws, and hiscoworkers. He reports vision Impairments in the way of corrective lenses. There is no evidence of patient having difficulty following medical recommendations. Support/Caregiver: Patient lives in a three-story house with his spouse. Patient shares that he and his spouse purchased a fixer-upper in February 2021. Patient plans on discharging to home for post donation care. Patient's primary support team will include his spouse Sendy, who is currently 5 months with their first child. Patient's son is due in October and he is hoping to donate around November in order tal available for his spouse during her and when their son is born. Additional support includes patient's sister, brother, and mother. Patient notes a large family support network in the local area and denies any concerns with the care of himself, his spouse, and his child post-donation. Patient was encouraged to discuss needs with family and friends to ensure that he has appropriate care post-surgery. Education was provided on the need to avoid steps, lifting, and driving post-surgery. Patient and social work spent approximately 20 minutes discussing post care protocol and need for patient to access supportive care for recovery. Financial: Social work explained financial, employment and insurance implications related to being an organ donor. Financial resources provided to patient, including NLDAC and tax incentives. Patient's employment status is full-time in [employer] and has been in this position for 1.5 years. Patient has access to paid vacation leave (1 week), but reports that he works for a very family oriented company and that they will be flexible with patient taking unpaid time away and/or light duty work asable. Patient states that his house is paid for and he received VA disability due to physical ailments. Patient denies current financial concerns. Social work reviewed the importance with patient theneed to discuss with employer, if applicable, time expected off of work and access to Family Medical Leave Act. Patient reports access to insurance through his own employer, under whom his spouse is also employed. Social work reviewed with patient the importance of life-long routine medical follow-up and advised for patient to follow up regarding maintaining his insurance benefits during his timeoff after donation. Mental Health: Patient confirms an endorsement of a mental health history. Patient confirms being previously diagnosed with a mental health diagnosis, including Depression ~2 years ago (It was all situational). Patient shares that he was experiencing multiple life stressors at the time, including being stationed out of state, his spouse returning to [place] to care for recipient, and being unhappy in his job. Patient [facility] from the [facility] at that time and was prescribed Prozac for ~6 months, but discontinued use after experiencing worsening depression and intrusive thoughts related to suicide. Patient also participated in individual counseling through the [facility] while being prescribed this medication. Patient denies having ever had a specific plan or intent to follow through, but shared his concerns with his spouse and eliminated his access to weapons as precautionary measures. Patient states that hissymptoms were alleviated once he left the [employer] and moved back to [place]. Patient denies current symptoms and/or daily functioning concerns. He denies a history of psychiatric hospitalizations. Patient denies a history of abuse. Patient confirms feeling safe in his currentenvironment and relationship. smooth and burr worker composites reviewed associated stress with medical procedures, including stress of staying in the hospital, being away from home, and being unable to complete typicalhousehold and work tasks. Patient's coping skills include doing outdoor activities, watching television, reading, listening to music, using the computer, spending time with family, working on remodeling projects, working on vehicles, and redesign planning. Patient and patient's support were educated about the mental health symptoms that some patients have reported experiencing post-transplant including depression and anxiety. Patient was informed of the availability of mental health resources and access to the Transplant Clinical Health Psychologist. Mental Status Exam: Patient's mood was noted as within normal limits Patient's appearance was noted as appropriately dressed and groomed Patient affect was noted as appropriately groomed with normal affect His behavior was noted as calm, cooperative and appropriate Eye contact was maintained and appropriate Insight was good Memory was noted as intact, no impairments noted Patient's attention was sustained. Patient's judgment was noted to be good Patient's speech was of adequate volume and rate Patient's thought content was noted as logical and coherent Psychomotor functioning was within normal limits Visual/auditory/olfactory hallucinations were not noted. Delusions were not noted as present. Patient denies current SI, plan and intent along with HI, plan and intent. Patient denies a history of suicide attempts or self-injurious behaviors, though he notes some intrusive thoughts attributed to side effects of Prozac as outlined above. Alcohol and Substance Use: Alcohol: confirms history, denies current Patient endorses experimental use of alcohol in the summer of 2009. Patient confirms history of problematic alcohol consumption. Patient denies all other substance use and support person(s) present, outside documentation, and patient's medical records appear to confirm same. Based on evaluation, patient meets criteria for No Alcohol or Substance Use Disorder diagnosis. Donor Motivation: The patient states that they have known the recipient since 2009. Patient states that he learned about the recipient's need for a transplant through He has had health issues since we started dating, we talk to them and see them every weekend. His kidney problems as declined. He reports that they offered to donate and the recipient was Just grateful, just keep telling me I don't have to if I don't want to. He states that their motivation to donate includes Her parents have helped us out alot, I just want to give back and do something. It's just something I can do to help them. The donor feels that the recipient's life will change because I am just hoping he doesn't feel terrible all the time and do stuff. I would like for him to play with his grandkids better, be around for more of their life than if he didn't get a kidney. Patient does not expect donation to change their relationship with the recipient. Patient reports that his family and friends have been largely supportive of the desire to donate, though his mother has expressed some concern for the risks of donation. Patient denies having any second thoughts regarding organ donation. If donor is ruled out for any reason, patient voices that they would feel Disappointment that I can't help [recipient]. At the same time, if I can't I can't. The donor indicates that if recipient experiences complications at any point post- transplant they would feel I think I would feel bad for [recipient], that it wasn't a goodfix. Disappointment that he wasn't able to get better. Patient voices that he has the following concerns regarding donation: No, just that something would happen that I couldn't donate. Patient denies feeling pressure to donate or being offered pay/reward to donate. Patient's decision to donate w as free of coercion and other undue pressure. Social work explained the option for a medical out with the patient and encouraged they were encourage to notify transplant staff at any time to express those wishes. Understanding of Donation Process: Patient voices understanding regarding how donation will change their life as a potential organ donor including post-surgical limitations and long-term needs, as well as transplant care for recipient. Patient does demonstrate understanding regarding organ donation process. Social work reviewed withpatient Donor Risk Criteria Survey and they verbalized understanding the purpose of the questions. Patient denies current or history of surveyed behaviors to note within the last 30 days. He identified with 0 of the indicated behaviors. Patient denies any questions regarding Donor Risk Criteria Survey. Patient was encouraged to discuss additional questions with pre coordinator or physician. He has demonstrated an understanding of short-term and long-term risks associated with organ donation andtransplant. Patient acknowledged being educated and receiving information about the short and long-term medical and psychosocial risks of living donation for both the donor and recipient. Patient demonstrates moderate knowledge of the recipient's diagnosis and prognosis. Social work discussed and reviewed the short and prison psychological risks associated with donation, which include: body image, scarring, functional status, treatment benefits and risks, PTSD, anxiety, and depression. He denies current concerns regarding psychological risks factors. Patient was given a donor education packet with checklist to prepare for donation, financial/tax incentives, support information, and smoking cessation resources. Psychosocial impression: Social work reinforced the option for a medical out with the patient and encouraged them to notify transplant staff at any time to express those wishes. Based on patient's presentation, it appears that patient has been forthcoming with evaluation information. Patient does present as an adequate psychosocial candidate at this time. Psychosocial evaluation information shared multidisciplinary team for continuity of care. CELESTINO Osman, MACHINING AND ASSEMBLY SUPERVISOR [facility]* Diagnosis Donor, kidney- Primary Kidney donor [facility]* Diagnosis Donor, kidney Kidney donor [facility]* Diagnosis Kidney [facility]* Diagnosis Donor, kidney Kidney donor [facility]* Diagnosis Kidney donor- Primary Kidney donor Kidney donor [facility] Diagnosis Kidney donor [facility] Diagnosis Kidney donor [facility]* Diagnosis Onset Date Resolution Status Admit Date Encounter for examination required by Department of Transportation (DOT) acute December 222024 11:12am [facility] Work Phone: [place] [address] [place] [address] OFFICE VISIT Date of Service: 01/13/25 MR#: [id number] Acct: [id number] Patient: LEDY DOVER Rep #: [id number] : 1985 Provider: JAYASHREE Barajas Age/Sex: 39/M Location: [facility] Status: Signed Intake Intake Visit Reasons: DOT PHYSICAL/SELF PAY Chief Complaint: [facility] History (Updated 12/19/23 @ 06:28 by JAYASHREE Andrade) HTN (hypertension) HPI HPI Chief Complaint: DOT physical Details: LEDY DOVER, is a 39 M who presents to the office today for DOT physical Office Procedures Physical Exam Coding PE Coding DOT PE: Yes Coding Level of Care Code No Charge Diagnoses Encounter for examination required by Department of Transportation (DOT) Z02.89 Assessment and Plan Assessment and Plan (1) Encounter for examination required by Department of Transportation (DOT): Status: Acute Plan: see accompanying paperwork. 1 yr card issued. hx htn stable 01/13/25 1154 A PA> Date _ Ayaz BLANC Cosigner Signature: Date (if applicable) CC: ~ [facility] Author Ayaz Maguire [facility] Note Date/Time January 13, 2025 11:54am [facility] [address] [place] [address] OFFICE VISIT Date of Service: 01/13/25 MR#: [id number] Acct: [id number] Patient: LEDY DOVER Rep #: [id number] : 1985 Provider: JAYASHREE Barajas Age/Sex: 39/M [place] [facility] Status: Signed Intake Intake Visit Reasons: DOT PHYSICAL/SELF PAY Chief Complaint: DOT physical PFSH Medical History (Updated 12/19/23 @ 06:28 by JAYASHREE Andrade) HTN (hypertension) HPI HPI Chief Complaint: DOT physical Details: LEDY DOVER, is a 39 M who presents to the office today for DOT physical Office Procedures Physical Exam Coding PE Coding DOT PE: Yes Coding Level of Care Code No Charge Diagnoses Encounter for examination required by Department of Transportation (DOT) Z02.89 Assessment and Plan Assessment and Plan (1) Encounter for examination required by Department of Transportation (DOT): Status: Acute Plan: see accompanying paperwork. 1 yr card issued. 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.4] Procedures [place] LAP,DONOR KIDNEY REMOV,LIVING DONOR NEPHRECTOMY LIVING DONOR LAPAROSCOPIC Katy Chavez MD, PhD [address] [place] [address] [facility] [address] [place] [address] Referral ID Status Reason Start Date Expiration Date Visits Re quested Visits Authorized [id number] 1 1 [facility] Reason for Referral Specialty Diagnoses / Procedures Referred By Ralph harris Referred To Contact Diagnoses Kidney donor Procedures CT ANGIO LIVING KIDNEY DONOR [place] CT ANGIO, PELVIS, COMBO, INCL IMAGE PROC Katy Chavez MD, PhD [address] [place] [address] Referral ID Status Reason Start Date Expiration Date Visits Re quested Visits Authorized [id number] Closed 06/27/2021 07/22/2022 1 1 Specialty Diagnoses / Procedures Referred By Ralph harris Referred To Contact Echocardiography Diagnoses Donor, kidney Procedures ECHOCARDIOGRAM [place] ECHO HEART XTHORACIC,COMPLETE W DOPPLER Kendrick Dugan MD [address] [place] [address] Echocardiography [place] [address] [place] [address] Referral ID Status Reason Start Date Expiration Date Visits Re quested Visits Authorized [id number] Closed 07/10/2021 08/04/2022 1 1 Specialty Diagnoses / Procedures Referred By Ralph harris Referred To Contact Diagnoses Kidney donor Procedures ECG Katy Chavez MD, PhD [address] [place] [address] Referral ID Status Reason Start Date Expiration Date V isits Requested Visits Authorized [id number] New Request 03/22/2022 04/16/2023 1 1 Advance Directives No Advanced Directives Records FoundLatest Code Status on File Code Status Date Activated Date Inactivated Comments Full Code 03/30/2022 5:21 AM Summary Purpose Family History No Family History Records FoundNo Family History Records FoundNo Family History Records Found Chief Complaint and Reason for Visit Chief Complaint Admit Date DOT PHYSICAL/SELF PAY January 13 11:12am Reason for Visit Admit Date Encounter for examination re quired by Department of Transportation (DOT) January 13, 2025 11:12am Additional Source Comments Reason for Visit (unrecogniz ed section and content) Reason Comments Kidney Donor Evaluation Specialty Diagnoses / Procedures Referred By Contac t Referred To Contact Diagnoses Kidney donor Procedures CT ANGIO LIVING KIDNEY DONOR [place] CT ANGIO, PELVIS, COMBO, INCL IMAGE PROC Katy Chavez MD, PhD [address] [place] [address] Referral ID Status Reason Start Date Expiration Date Visits Re quested Visits Authorized [id number] Closed 06/27/2021 07/22/2022 1 1 Specialty Diagnoses / Procedures Referred By Contac t Referred To Contact Echocardiography Diagnoses Donor, kidney Procedures ECHOCARDIOGRAM [place] ECHO HEART XTHORACIC,COMPLETE W DOPPLER Kendrick Dugan MD [address] [place] [address] Echocardiography [place] [address] [place] [address] Referral ID Status Reason Start Date Expiration Date Visits Re quested Visits Authorized [id number] Closed 07/10/2021 08/04/2022 1 1 Reason Comments Kidney Donor Evaluation Care Teams (unrecognized sec tion and content) Machine Sizer Relationship Specialty Start Date End Date [facility] Other [address] [place], [place] [id number] PCP - Citizen Participation Specialist Transplant 04/05/21 Machine Sizer Relationship Specialty Start Date End Date [facility] [address] PCP - Citizen Participation Specialist Transplant 04/05/21 Machine Sizer Relationship Specialty Start Date End Date [facility] [address] [place] [phone] PCP - Citizen Participation Specialist Transplant 04/05/21 Machine Sizer Relationship Specialty Start Date End Date [facility] Other [address] [place] [phone] PCP - Citizen Participation Specialist Transplant 04/05/21 Machine Sizer Relationship Specialty Start Date End Date [facility] [address] [place] [address] PCP - Citizen Participation Specialist Transplant 04/05/21 Self, Self PCP - General Other 03/26/22 Machine Sizer Relationship Specialty Start Date End Date [facility] Other [address] [place] [address] PCP - Citizen Participation Specialist Transplant 04/05/21 Self, Self PCP - General Other 03/26/22 Machine Sizer Relationship Specialty Start Date End Date [facility] Other [address] [place] [phone] PCP - Citizen Participation Specialist Transplant 04/05/21 Self, Self PCP - General Other 03/26/22 Team Status: Active Member Role/Relationship Status Dates Out of [facility] Doctor Primary care physician Active No Primary Care Physician Primary care physician Activ e Team Status: Inactive Member Role/Relationship Status Dates No Primary Care Physician Primary care physician Activ e Start: January 13, 2025 End: January 13, 2025 No Primary Care Physician Referring Provider Active Start: January 13, 2025 End: January 13, 2025 JAYASHREE Andrade Attending physician Active St art: January 13, 2025 End: January 13, 2025 Scheduled Active and Recently Administ ered Medications (unrecognized section and content) Medication Order 03/30/2022 2022 04/01/2022 docusate (COLACE) capsule 200 mg 200 mg, Oral, 2 TIMES DAILY, First dose on Sat03/30/22 at 1115, Until Discontinued, Post-op/Post-Proc 1121 (Not Given - Provider: Alonzo Mulligan RN - Reason: Patient sleeping)1636 (Given - Provider: Alonzo Mulligan RN) 0814 (Given - Provider: Patience Smith RN)1648 (Given - Provider: Patience Smith RN) 0818 (Given - Provider: Patience Smith RN) heparin injection 5,000 Units 5,000 Units, Subcutaneous, EVERY 8 HOURS (0800/1600/2200), First dose on Sat03/30/22 at 1600, Until Discontinued, Post-op/Post-Proc 1636 (Given - Provider: Alonzo Mulligan RN)2232 (Not Given - Provider: Kari Ambrocio RN - Reason: Patient sleeping) 0738 (Given - Provider: Patience Smith RN)1649 (Given - Provider: Patience Smith RN)2202 (Given - Provider: Kari Ambrocio RN) 0818 (Given - Provider: Patience Smith RN)1600 (Canceled Entry - Provider: System Discharge - Comment: Automatically canceled at discontinue of medication order) naloxone (NARCAN) injection 0.1 mg(Linked Group 1) 0.1 mg, Intravenous, SEE ADMIN INSTRUCTIONS, Starting on Sat03/30/22 at 1113, Until Sat04/01/22 at 1653, If RR </= 7 per min and difficult to arouse give naloxone 0.1 mg q 2 mins until RR > 8/min and/or drowsiness abates. Contact provider. If no response is noted after 2 doses, consider other causes of respiratory depression., Post-op/Post-Proc naloxone (NARCAN) injection 0.4 mg(Linked Group 1) 0.4 mg, Intravenous, SEE ADMIN INSTRUCTIONS, Starting on Sat03/30/22 at 1113, Until Sat04/01/22 at 1653, If patient APNEIC and difficult to arouse: Give naloxone 0.4 mg q2 minutes until RR> 8/min and call a 'code blue'. If no response is noted after 2 doses, consider other causes of respiratory depression., Post-op/Post-Proc senna (SENOKOT) tablet 8.6 mg 8.6 mg, Oral, 2 TIMES DAILY, First dose on Sat03/30/22 at 1115, Until Discontinued, Hold if patient is NPO., Post-op/Post-Proc 1121 (Not Given - Provider: Alonzo Mulligan RN - Reason: Patient sleeping)1636 (Given - Provider: Alonzo Mulligan RN) 0739 (Given - Provider: Patience Smith RN)1648 (Given - Provider: Patience Smith, RN) 0818 (Given - Provider: Patience Smith RN) Continuous Medication Order 03/30/2022 2022 04/01/2022 morphine 30 mg/30 mL primary teaching assistant syringe () Intravenous, CONTINUOUS, Starting on Sat03/30/22 at 0915, Until 03/31/22 at 0314, CIGAR PACKER [employer] PICKER Dose (mg): 1.4, Lockout Interval (9 - 99 MINUTES): 10, Continuous Dose (mg/hr): 0, : , Clinician Bolus Dose (mg): 2, Clinician Bolus Dose Interval (MINUTES): 10, Maximum number of Clinician Bolus Doses in 4 hours (doses): 4, : , If lower dose was previously documented as ineffective (moderate or severe pain after 2 or more CIGAR PACKER [employer] PICKER doses in previous 1 hour) and did not result in adverse effects (RR <10, negative change in RASS of 2 or more), may increase dose to (mg): 1.8, Post-op/Post-Proc 0936 (New Syringe/Cartridge - Provider: Nilam Ray RN)184 (CIG[employer] P[employer]ER [employer] PICKER Shift Total - Provider: Alonzo Mulligan RN)2018 (CIGAR PACKER [employer] PICKER Shift Total - Provider: Kari Ambrocio RN - Comment: 1.4 mg)2019 (New Syringe/Cartridge - Provider: Kari Ambrocio RN) 0120 (Rate/Dose Verify - Provider: Kari Ambrocio RN)0306 (CIGAR PACKER [employer] PICKER Shift Total - Provider: Kari Ambrocio RN)0307 (Stopped - Provider: Kari Ambrocio RN) sodium chloride 0.9% IV solution (CANCELED) Intravenous, at 75 mL/hr, CONTINUOUS, Starting on Sat03/30/22 at 0530, Until Sat03/30/22 at 1028, Pre-op/Pre-Proc 0558 ($$New Bag$$ - Provider: Alexandria Ortiz RN)0657 (Paused - Provider: LISSET Wolff - Comment: Switch to gravity)0658 (Restarted - Provider: LISSET Wolff)0747 (Stopped - Provider: LISSET Wolff) sodium chloride 0.9% IV solution (CANCELED) Intravenous, at 100 mL/hr, CONTINUOUS, Starting on Sat03/30/22 at 0930, Until 03/31/22 at 0930, Post-op/Post-Proc 1117 ($$New Bag$$ - Provider: Alonzo Mulligan RN)1120 (Rate/Dose Verify - Provider: Kari Ambrocio RN)1843 (Rate/Dose Verify - Provider: Alonzo Mulligan RN)2120 (Rate/Dose Change - Provider: Kari Ambrocio RN)2127 (Rate/Dose Change - Provider: Kari Ambrocio RN)2129 (Stopped - Provider: Kari Ambrocio RN)2130 (Stopped - Provider: Kari Ambrocio RN)2130 ($$New Bag$$ - Provider: Kari Ambrocio RN)2235 (Rate/Dose Verify - Provider: Kari Ambrocio RN) 0307 (Paused - Provider: Kari Ambrocio RN)0310 (Restarted - Provider: Kari Ambrocio RN)0314 (Paused - Provider: Kari Ambrocio RN)0314 (Restarted - Provider: Kari Ambrocio RN)0416 (Rate/Dose Verify - Provider: Kari Ambrocio RN)0728 (Rate/Dose Verify - Provider: Patience Smith RN)1006 (Stopped - Provider: Patience Smith RN) PRN Medication Order 03/30/2022 2022 04/01/2022 acetaminophen (TYLENOL) tablet 650 mg 650 mg, Oral, EVERY 4 HOURS NEEDED, Starting on 04/01/22 at 0954, Until 04/01/22 at 1653, Mild Pain, Moderate Pain, Maximum dose of acetaminophen is 4000 mg from all sources in 24 hours. ceFAZolin (ANCEF) 2 g in dextrose 100 mL premix IVPB (COMPLETED) 2 g, Intravenous, Administer over 30 Minutes, PROFESSOR OF THEATER TO PROCEDURE, 1 dose, Starting on Sat03/30/22 at 0521, Until Sat03/30/22 at 0730, Other, surgical prophylaxis, Initiate antibiotic administration 30-60 minutes prior to surgical incision and complete administration prior to surgical incision., Pre-op/Pre-Proc 0715 (Given - Provider: Emilia Faith, FEED HOUSE SUPERVISOR-FNP) heparin injection 5,000 Units (COMPLETED) 5,000 Units, Subcutaneous, PROFESSOR OF THEATER TO PROCEDURE, 1 dose, Starting on Sat03/30/22 at 0521, Until Sat03/30/22 at 0613, Other, compensation specialist to OR, Pre-op/Pre-Proc 0613 (Given - Provider: Alexandria Ortiz, LESTER) ondansetron 4mg/2ml (ZOFRAN) injection 4 mg 4 mg, Intravenous, EVERY 4 HOURS NEEDED, Starting on Sat03/30/22 at 1113, Until 04/01/22 at 1653, Nausea / Vomiting, 1st Line, Post-op/Post-Proc 1930 (Given - Provider: Kari Ambrocio RN) 0751 (Given - Provider: Patience Smith RN) oxyCODONE-acetaminophen (PERCOCET) 5-325 MG per tablet 1 tablet(Linked Group 2) 1 tablet, Oral, EVERY 4 HOURS NEEDED, Starting on Sat03/30/22 at 1113, Until Sat04/01/22 at 1653, Moderate Pain, Moderate pain after CIGAR PACKER [employer] PICKER discontinued, Use as initial dose. Higher dose may be administered if lower dose was previously documented as ineffective and did not result in adverse effects (RR<10, decrease in level of consciousness)., Post-op/Post-Proc 0312 (Given - Provider: Kari Ambrocio RN)0738 (Given - Provider: Patience Smith RN)1144 (See Alternative - Provider: Thelma Pena RN)1648 (See Alternative - Provider: Patience Smith, RN)2209 (Given - Provider: Kari Ambrocio RN) 0625 (Given - Provider: Kari Ambrocio RN)1043 (See Alternative - Provider: Patience Smith RN) oxyCODONE-acetaminophen (PERCOCET) 5-325 MG per tablet 2 tablet(Linked Group 2) 2 tablet, Oral, EVERY 4 HOURS NEEDED, Starting on Sat03/30/22 at 1113, Until 04/01/22 at 1653, Moderate Pain, Moderate pain after CIGAR PACKER AND PICKER discontinued, Higher dose may be administered if lower dose was previously documented as ineffective and did not result in adverse effects (RR<10, decrease in level of consciousness). Decrease back to lower dose if patient has adverse effects, or no PRN used in previous 12 hours., Post-op/Post-Proc 0312 (See Alternative - Provider: Kari Ambrocio, RN)0738 (See Alternative - Provider: Patience Smith, RN)1144 (Given - Provider: Thelma Pena RN)1648 (Given - Provider: Patience Smith RN)2209 (See Alternative - Provider: Kari Ambrocio, LESTER) 0625 (See Alternative - Provider: Kari Ambrocio, LESTER)1043 (Given - Provider: Patience Smith RN) polyethylene glycol (MIRALAX) packet 17 g 17 g, Oral, DAILY NEEDED, Starting on Sat03/30/22 at 1113, Until 04/01/22 at 1653, Constipation 1st Line, If no BM in 48 hours., Post-op/Post-Proc prochlorperazine (COMPAZINE) injection 10 mg(Linked Group 3) 10 mg, Intravenous, EVERY 4 HOURS NEEDED, Starting on Sat03/30/22 at 1113, Until 04/01/22 at 1653, Nausea / Vomiting, 2nd line, For IV route: dilute dose with 10mL normal saline and give by slow IV push at a rate of 5mg/min. Maximum of 40mg/day., Post-op/Post-Proc prochlorperazine (COMPAZINE) tablet 10 mg(Linked Group 3) 10 mg, Oral, EVERY 4 HOURS NEEDED, Starting on Sat03/30/22 at 1113, Until 04/01/22 at 1653, Nausea / Vomiting, 2nd line, Post-op/Post-Proc simethicone (MYLICON) chewable tablet 80 mg 80 mg, Oral, EVERY 4 HOURS NEEDED, Starting on Sat03/30/22 at 1113, Until 04/01/22 at 1653, Gas, Post-op/Post-Proc Linked Groups Order Group 1: naloxone (NARCAN) injection 0.1 mgJump to med 0.1 mg, Intravenous, SEE ADMIN INSTRUCTIONS, Starting on Sat03/30/22 at 1113, Until Sun /11/22 at 1653
If RR </= 7 per min and difficult to arouse give naloxone 0.1 mg q 2 mins until RR > 8/min and/or drowsiness abates. Contact provider. If no response is noted after 2 doses, consider other causes of respiratory depression.
Post-op/Post-Proc Or naloxone (NARCAN) injection 0.4 mgJump to med 0.4 mg, Intravenous, SEE ADMIN INSTRUCTIONS, Starting on Sat03/30/22 at 1113, Until Sat04/01/22 at 1653
If patient APNEIC and difficult to arouse: Give naloxone 0.4 mg q2 minutes until RR> 8/min and call a 'code blue'. If no response is noted after 2 doses, consider other causes of respiratory depression.
Post-op/Post-Proc Group 2: oxyCODONE-acetaminophen (PERCOCET) 5-325 MG per tablet 1 tabletJump to med 1 tablet, Oral, EVERY 4 HOURS NEEDED, Starting on Sat03/30/22 at 1113, Until Sat04/01/22 at 1653, Moderate Pain, Moderate pain after CIGAR PACKER AND PICKER discontinued
Use as initial dose. Higher dose may be administered if lower dose was previously documented as ineffective and did not result in adverse effects (RR<10, decrease in level of consciousness).
Post-op/Post-Proc Or oxyCODONE-acetaminophen (PERCOCET) 5-325 MG per tablet 2 tabletJump to med 2 tablet, Oral, EVERY 4 HOURS NEEDED, Starting on Sat03/30/22 at 1113, Until Sat04/01/22 at 1653, Moderate Pain, Moderate pain after CIGAR PACKER AND PICKER discontinued
Higher dose may be administered if lower dose was previously documented as ineffective and did not result in adverse effects (RR<10, decrease in level of consciousness). Decrease back to lower dose if patient has adverse effects, or no PRN used in previous 12 hours.
Post-op/Post-Proc Group 3: prochlorperazine (COMPAZINE) injection 10 mgJump to med 10 mg, Intravenous, EVERY 4 HOURS NEEDED, Starting on Sat03/30/22 at 1113, Until Sat04/01/22 at 1653, Nausea / Vomiting, 2nd line
For IV route: dilute dose with 10mL normal saline and give by slow IV push at a rate of 5mg/min. Maximum of 40mg/day.
Post-op/Post-Proc Or prochlorperazine (COMPAZINE) tablet 10 mgJump to med 10 mg, Oral, EVERY 4 HOURS NEEDED, Starting on 03/30/22 at 1113, Until 04/01/22 at 1653, Nausea / Vomiting, 2nd line, Post-op/Post-Proc (unrecognized sect ion and content) No Status Records FoundNo Status Records FoundNo Status Records Found INFORMATION SOURCE (unrecogn ized section and content) DATE CREATED AUTHOR 03/08/2023 [facility] DATE CREATED AUTHOR AUTHOR'S ORGANIZ ATION 12/18/2024 [facility] DATE CREATED AUTHOR AUTHOR'S ORGANIZ ATION 03/03/2025 [facility] Goals (unrecognized section and content) Goals may be documented in a n alternate section FOR RECORDS PERTAINING TO PATIENTS WHO ARE OR HAVE BEEN ENROLLED IN A CHEMICAL DEPENDENCY/SUBSTANCEABUSE PROGRAM, SOME INFORMATION MAY BE OMITTED. This clinical summary was aggregated from multiple sources. Caution should be exercised in using it in the provision of clinical care. This summary normalizes information from multiple sources, and as a consequence, information in this document may materially change the coding, format and clinical context of patient data. In addition, data may be omitted in some cases. CLINICAL DECISIONS SHOULD BE BASED ON THE PRIMARY CLINICAL RECORDS. [employer] provides no warranty or guarantee of the accuracy or completeness of information in this document.
== END | disposition home or self-care (01) ==
LOC: SL 19:46
PROVIDERS: Referring Provider Nurse Practitioner Family; Visit Provider Nurse Practitioner Family
DX: G47.10 Hypersomnia, unspecified (principal)
CPT/HCPCS: 95810